=== PATIENT | female | born 1995 | race Caucasian/White ===

== ENCOUNTER → 2018-02-03 | Outpatient (CLI) | payer MEDICAID ==
--- NOTE | 2018-02-03 14:41 | Diagnostic Imaging Report ---
INDICATION: Assess growth. TECHNIQUE: Multiple real-time grayscale images were obtained over the gravid uterus. COMPARISON: None. FINDINGS: Mendez gestation is in cephalic position. The placenta is fundal with no abruption or previa. Amniotic fluid volume is normal, the index 10.1. Measurements correlate with an age 33 weeks 0 day with sonographic date of confinement 03/24/2018. Biometrical measurements are as follows: Biparietal 7.98 cm, age 32 weeks 1 days. Head circumference 29.5 cm, age 32 weeks 5 days. Abdominal circumference 30.77 cm, age 34 weeks 6 days. Femur length 6.19 cm, age 32 weeks 1 days. Sonographic estimate age: 33 weeks 0 days. Sonographic estimated date of delivery: 03/24/2108. Estimated Weight: 2212 gm (+/- 323 gm). LMP percentile: 23%. heart rate: 142 beats per minute. number: 1 of 1. IMPRESSION: Mendez IUP at 33 weeks 0 day, cephalic in positioning with no pathological finding identified. Dictated by: Dictated on workstation # [id number]
== END ==
LOC: RAD 12:55
PROVIDERS: ATTEND Family Medicine
DX: O36.5930 Maternal care for other known or suspected poor fetal growth, third trimester, not applicable or unspecified (principal); Z3A.33 33 weeks gestation of pregnancy
CPT/HCPCS: 76805

== ENCOUNTER 2018-03-09 20:16 | Inpatient (IN) | payer MEDICAID ==
[~2018-03-09] VITALS: Ht 157.5 cm; Wt 70.8 kg
[2018-03-09] MEDS ORDERED: D5 LR IV SOLUTION 1,000 ML IV SCH (20:27)
[2018-03-09] MEDS ORDERED: MISOPROSTOL 100 MCG (CYTOTEC) TAB PV PRN (20:30)
[2018-03-09] MEDS ORDERED: TERBUTALINE INJ 1 MG/ML (BRETHINE) AMP SC PRN (20:30)
[2018-03-09] MEDS ORDERED: PREN-8 PO (20:47)
[2018-03-09] MEDS ORDERED: LACTATED RINGERS 1,000 ML IV ONE (20:57)
[2018-03-09] MEDS ORDERED: D5 LR IV SOLUTION 1,000 ML IV ONE (20:57)
[2018-03-09 21:00] VITALS: BP 130/79
[2018-03-09] MEDS: LACTATED RINGERS 1,000 ML IV SCH (21:11)
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
--- OUTSIDE RECORDS SUMMARY | 2018-03-09 21:12 | XMS REPORT ---
Author Author HAM LOYOLA [facility] Address [address] [place] [address] Care Team Providers Care Computer Forwarding System Markup Clerk Name Role Phone HAM LOYOLA Unavailable PROBLEMS Type Condition ICD9-CM Code HKC82-GX Code Onset Dates Condition Status SNOMED Code Problem Mild intermittent asthma with acute exacerbation J45.21 Active 794883546 Problem Unplanned Z34.90 Active 92475229 Problem Supervision of with insufficient care in second trimester O09.32 Active 76908976 Problem Poor growth affecting management of mother in third trimester, single or unspecified fetus O36.5930 Active 128214221 Problem Mental disorder complicating in third trimester O99.343 Active 886602455 Problem Bipolar affective disorder, remission status unspecified F31.9 Active 06918990 Problem with mental disorders in second trimester O99.342 Active 498727763 Problem Supervision of with insufficient care, third trimester O09.33 Active 16841691 Problem Seasonal allergies J30.2 Active 210537547 ALLERGIES No Information ENCOUNTERS Encounter Location Date Diagnosis [facility] [address] [id number], [place] [phone] Feb, [facility] [address] [facility] [id number], [place] [address] Feb, Third trimester Z33.1 ; Xhpnf-ovq-crykk fetus, third trimester O36.5930 ; 38 weeks gestation of Z3A.38 and Glucosuria R81 [facility] [address] [id number], [place] [address] Feb, Poor growth affecting management of mother in third trimester, single or unspecified fetus O36.5930 ; screening for streptococcus B Z36.85 ; 37 weeks gestation of Z3A.37 ; Acute vaginitis N76.0 and Infection of other part of genital tract in , third trimester O23.593 [facility] [address] [facility] [id number], [place] [address] Feb, [facility] [address] [facility] [id number], [place] [address] Feb, [facility] [address] [facility] [id number], [place] [address] Jan, care in third trimester Z34.93 ; Poor growth affecting management of mother in third trimester, single or unspecified fetus O36.5930 ; 34 weeks gestation of Z3A.34 and [facility] immunization Z23 [facility] [address] [id number], [place] [id number] Jan, Supervision of with insufficient care, third trimester O09.33 and Mental disorder complicating in third trimester O99.343 [facility] [address]00565100[place], [place] [id number] Dec, [facility] [address] [id number], [place] [phone] Dec, [facility] [address] [facility] [id number] [place] [id number] Dec, [facility] [address] [id number], [place] [phone] Dec, [facility] [address] [facility] [address] [id number], [place] [address] Dec, Supervision of with insufficient care, third trimester O09.33 ; Mental disorder complicating in third trimester O99.343 ; with mental disorders in second trimester O99.342 ; Encounter for immunization Z23 and Small for gestational age fetus affecting management of mother in awan in third trimester O36.5930 [facility] [address] [id number], [place] [phone] Dec, [facility] [address] [id number], [place] [id number] Nov, Supervision of with insufficient care in second trimester O09.32 ; with mental disorders in second trimester O99.342 ; Bipolar affective disorder, remission status unspecified F31.9 and Unplanned Z34.90 [facility] [address] [id number], [place] [id number] Nov, [facility] [address] [facility] [id number], [place] [phone] Nov, [facility] [address] [id number], [place] [phone] Oct, Seasonal allergies J30.2 [facility] [address] [id number], [place] [id number] Sep, [facility]ALSE[facility] [address] [id number], [place] [id number] Sep, Supervision of with insufficient care in second trimester O09.32 ; with mental disorders in second trimester O99.342 and Bipolar affective disorder, remission status unspecified F31.9 [facility] [address] [id number], [place] [phone] Sep, [facility]ALSE[facility] [address] [id number], [place] [address] Sep, Supervision of with insufficient care in second trimester O09.32 ; with mental disorders in second trimester O99.342 ; Bipolar affective disorder, remission status unspecified F31.9 and Unplanned Z34.90 [facility]ITALOur Security TeamMaribeth [address] [id number], [place] [id number] Sep, [facility] [address] [id number], [place] [id number] Jul, test positive Z32.01 [facility]ITALSENovoPolymersSM[address] [id number], [place] [id number] Mar, Mild intermittent asthma with acute exacerbation J45.21 and Hives L50.9 [facility]ITALDartPointsTER [address] [id number], [place] [phone] Dec, Dysuria 788.1 ; UTI symptoms 788.99 and Hematuria 599.70 IMMUNIZATIONS No Known Immunizations SOCIAL HISTORY Never Assessed REASON FOR VISIT ob f/u 1 week, NEEDS REPEAT GBS, cervix check-awoods PLAN OF CARE Activity Details Follow Up 1 Week Reason: Pending Test CULTURE, GROUP B STREP WITH SUSCEPTIBILITY Future/Pending Procedure NON-STRESS TEST VITAL SIGNS Height 61.5 in 2018-03-05 Weight 158.1 lbs 2018-03-05 Temperature 98.2 degrees Fahrenheit 2018-03-05 Heart Rate 82 bpm 2018-03-05 Respiratory Rate 20 2018-03-05 BMI 29.389 kg/m2 2018-03-05 Blood pressure systolic 122 mmHg 2018-03-05 Blood pressure diastolic 72 mmHg 2018-03-05 MEDICATIONS Medication Instructions Dosage Frequency Start Date End Date Duration Status Vitamin 27-0.8 MG Orally Once a day 1 tablet 24h Active RESULTS Name Result Date Reference Range GLUCOSE FINGERSTICK (IN HOUSE) 2018-03-05 GLU FINGERSTICK 79 PC Lot # [id number] Exp date 07/18/18 UA OB DIP (IN HOUSE) 2018-03-05 Glucose trace Protein negative Ultrasound : OB F/U (IN-HOUSE) 2018-03-05 Ultrasound : BIOPHYSICAL PROFILE W/ (IN-HOUSE) 2018-03-05 PROCEDURES Procedure Date Ordered Result Body Site URINE-NO MICRO Mar 05, 2018 BIOPHYS PROFILE W/NST Mar 05, 2018 NON-STRESS TEST Mar 05, 2018 LAB NOT BILLED BY [facility] Mar 05, 2018 OB US, FOLLOW-UP, PER FETUS Mar 05, 2018 GLUCOSE BLOOD TEST Mar 05, 2018 INSTRUCTIONS MEDICATIONS ADMINISTERED No Known Medications [...]
--- OUTSIDE RECORDS SUMMARY | 2018-03-09 21:12 | XMS REPORT ---
Author Author NATY RODRIGUEZ Organization [facility] Address [address] [place] [address] Care Team Providers Care Silk Spooler Name Role Phone MELINANOLBERTOHERACLIO NATY Unavailable PROBLEMS Type Condition ICD9-CM Code IZB13-XM Code Onset Dates Condition Status SNOMED Code Problem Supervision of with insufficient care in second trimester O09.32 Active 41849476 Problem Mild intermittent asthma with acute exacerbation J45.21 Active 446618647 Problem Supervision of with insufficient care, third trimester O09.33 Active 16123141 Problem Mental disorder complicating in third trimester O99.343 Active 713402981 Problem with mental disorders in second trimester O99.342 Active 520818911 Problem Unplanned Z34.90 Active 58879558 Problem Seasonal allergies J30.2 Active 511842580 Problem Bipolar affective disorder, remission status unspecified F31.9 Active 63300344 ALLERGIES Substance Reaction Event Type Date Status Penicillin V Potassium hives Drug Allergy Nov, Active Depakote rash Drug Allergy Nov, Active ENCOUNTERS Encounter Location Date Diagnosis [facility] [address] [id number], [place] [id number] Jan, Supervision of with insufficient care, third trimester O09.33 and Mental disorder complicating in third trimester O99.343 [facility] [address] [facility] [id number], [place] [id number] Dec, [facility] [address] [id number], [place] [address] Dec, [facility] [address] [id number], [place] [id number] Dec, [facility] [address] [facility] [id number], [place] [address] Dec, [facility] [address] [id number], [place] [id number] Dec, Supervision of with insufficient care, third trimester O09.33 ; Mental disorder complicating in third trimester O99.343 ; with mental disorders in second trimester O99.342 ; Encounter for immunization Z23 and Small for gestational age fetus affecting management of mother in awan in third trimester O36.5930 [facility] [address] [id number], [place] [address] Dec, [facility] [address] [id number], [place] [id number] Nov, Supervision of with insufficient care in second trimester O09.32 ; with mental disorders in second trimester O99.342 ; Bipolar affective disorder, remission status unspecified F31.9 and Unplanned Z34.90 [facility] [address] [id number], [place] [id number] Nov, [facility] ALYSON [address] [place] [id number], [place] [id number] Nov, [facility] [address] [id number], [place] [address] Oct, Seasonal allergies J30.2 [facility] [address] [id number], [place] [address] Sep, [facility] [address] [id number], [place] [address] Sep, Supervision of with insufficient care in second trimester O09.32 ; with mental disorders in second trimester O99.342 and Bipolar affective disorder, remission status unspecified F31.9 [facility] [address] [facility] [id number], [place] [id number] Sep, [facility] [address] [id number], [place] [address] Sep, Supervision of with insufficient care in second trimester O09.32 ; with mental disorders in second trimester O99.342 ; Bipolar affective disorder, remission status unspecified F31.9 and Unplanned Z34.[address] [facility] [address] [id number] [place] [address] Sep, [address] [id number], [place] [id number] Jul, test positive Z32.[address] [id number] [place] [address] Mar, Mild intermittent asthma with acute exacerbation J45.21 and Hives L50.[address] [id number] [place] [address] Dec, Dysuria 788.1 ; UTI symptoms 788.99 and Hematuria 599.70 IMMUNIZATIONS No Known Immunizations SOCIAL HISTORY Never Assessed REASON FOR VISIT OB f/u-feels like baby has dropped Lauri green PLAN OF CARE Activity Details Follow Up 2 Weeks Reason: VITAL SIGNS Weight 138.2 lbs 2017-12-09 Blood pressure systolic 120 mmHg 2017-12-09 Blood pressure diastolic 60 mmHg 2017-12-09 MEDICATIONS Medication Instructions Dosage Frequency Start Date End Date Duration Status Acetaminophen 500 mg Orally every 6 hrs 1-2 tablet as needed 6h Sep, Jan, 30 days Active Cetirizine HCl 10 mg Orally Once a day 1 tablet 24h Oct, Mar, 30 day(s) Active Cetirizine HCl 10 mg Orally Once a day 1 tablet 24h Mar, Unknown ProAir HFA 108 (90 Base) MCG/ACT Inhalation every 6 hrs 2 puffs as needed 6h Mar, Active Vitamin 27-0.8 MG Orally Once a day 1 tablet 24h Active RESULTS No Results PROCEDURES Procedure Date Ordered Result Body Site URINE-NO MICRO Dec 09, 2017 URINALYSIS, AUTO, W/O SCOPE Dec 09, 2017 VENIPUNCT, ROUTINE* Dec 09, 2017 LAB NOT BILLED BY [facility] Dec 09, 2017 INSTRUCTIONS MEDICATIONS ADMINISTERED No Known Medications MEDICAL [...]
--- OUTSIDE RECORDS SUMMARY | 2018-03-09 21:12 | XMS REPORT ---
Author Author NATY Mireles Organization [facility] Address [address] [place] [address] Care Team Providers Care Poultry Offal Icer Name Role Phone Aline NATY Unavailable PROBLEMS Type Condition ICD9-CM Code BTG65-QH Code Onset Dates Condition Status SNOMED Code Problem Mild intermittent asthma with acute exacerbation J45.21 Active 788707532 Problem Unplanned Z34.90 Active 70781812 Problem Supervision of with insufficient care in second trimester O09.32 Active 66698405 Problem Poor growth affecting management of mother in third trimester, single or unspecified fetus O36.5930 Active 609013790 Problem Mental disorder complicating in third trimester O99.343 Active 246190680 Problem Bipolar affective disorder, remission status unspecified F31.9 Active 51720282 Problem with mental disorders in second trimester O99.342 Active 941545912 Problem Supervision of with insufficient care, third trimester O09.33 Active 63672671 Problem Seasonal allergies J30.2 Active 504535373 ALLERGIES No Information ENCOUNTERS Encounter Location Date Diagnosis [facility] [address] [facility] [id number], [place] [address] Feb, [facility] [address] [facility] [id number], [place] [address] Jan, care in third trimester Z34.93 ; Poor growth affecting management of mother in third trimester, single or unspecified fetus O36.5930 ; 34 weeks gestation of Z3A.34 and Encounter for immunization Z23 [facility] [address] [id number] [place] [id number] Jan, Supervision of with insufficient care, third trimester O09.33 and Mental disorder complicating in third trimester O99.343 [facility] [address] [facility] [id number] [place] [phone] Dec, [facility] [address] [id number], [place] [id number] Dec, [facility] [address] [id number], [place] [address] Dec, [facility] MOREIRABUS [address] [facility] [id number] [place]EST[place] [phone] Dec, [facility] [address] [id number], [place] [address] Dec, Supervision of with insufficient care, third trimester O09.33 ; Mental disorder complicating in third trimester O99.343 ; with mental disorders in second trimester O99.342 ; Encounter for immunization Z23 and Small for gestational age fetus affecting management of mother in awan in third trimester O36.5930 [facility] [address] [id number], [place] [address] Dec, [facility] [address] [id number], [place] [address]96[address] Nov, Supervision of with insufficient care in second trimester O09.32 ; with mental disorders in second trimester O99.342 ; Bipolar affective disorder, remission status unspecified F31.9 and Unplanned Z34.90 [facility] [address] [id number], [place] [id number] Nov, [facility] SHIELDS [address] [facility] [id number] [place] [address] Nov, [facility] [address] [id number], [place] [address] Oct, Seasonal allergies J30.2 [facility] [address] [id number], [place] [address] Sep, [facility] [address] [id number], [place] [address]94[address] Sep, Supervision of with insufficient care in second trimester O09.32 ; with mental disorders in second trimester O99.342 and Bipolar affective disorder, remission status unspecified F31.9 [facility] ALYSON [address] [id number] [place] [id number] Sep, [facility] [address] [facility] [facility] [address] [id number], [place] [address] Sep, Supervision of with insufficient care in second trimester O09.32 ; with mental disorders in second trimester O99.342 ; Bipolar affective disorder, remission status unspecified F31.9 and Unplanned Z34.90 [facility] SM[address] [place] [address] AVE [id number], [place] [address] Sep, [facility] Mt[address] [place] [address] AVE [id number], [place] [address]39 Jul, test positive Z32.01 [facility]onym[facility]ITH[address] [id number], [place] [address] Mar, Mild intermittent asthma with acute exacerbation J45.21 and Hives L50.9 [facility] [address] [id number], [place] [address] Dec, Dysuria 788.1 ; UTI symptoms 788.99 and Hematuria 599.70 IMMUNIZATIONS No Known Immunizations SOCIAL HISTORY Never Assessed REASON FOR VISIT Requests return call PLAN OF CARE VITAL SIGNS MEDICATIONS Unknown [...]
--- OUTSIDE RECORDS SUMMARY | 2018-03-09 21:12 | XMS REPORT ---
Author Author ANN MONTAGUE Organization [facility] Address [address] [place] [address] Care Team Providers Care Specialty Development Consultant Name Role Phone ANN MONTAGUE Unavailable PROBLEMS Type Condition ICD9-CM Code IHX49-WC Code Onset Dates Condition Status SNOMED Code Problem Mild intermittent asthma with acute exacerbation J45.21 Active 433422734 Problem Unplanned Z34.90 Active 57879554 Problem Supervision of with insufficient care in second trimester O09.32 Active 28810027 Problem Poor growth affecting management of mother in third trimester, single or unspecified fetus O36.5930 Active 104201046 Problem Mental disorder complicating in third trimester O99.343 Active 562090849 Problem Bipolar affective disorder, remission status unspecified F31.9 Active 34089436 Problem with mental disorders in second trimester O99.342 Active 731906298 Problem Supervision of with insufficient care, third trimester O09.33 Active 21649589 Problem Seasonal allergies J30.2 Active 950169365 ALLERGIES No Information ENCOUNTERS Encounter Location Date Diagnosis [facility] [address] [facility] [id number], [place] [address] Feb, [facility] [address] [facility] [id number], [place] [address] Jan, care in third trimester Z34.93 ; Poor growth affecting management of mother in third trimester, single or unspecified fetus O36.5930 ; 34 weeks gestation of Z3A.34 and Encounter for immunization Z23 [facility] [address] [id number] [place] [address] Jan, Supervision of with insufficient care, third trimester O09.33 and Mental disorder complicating in third trimester O99.343 [facility] [address] [facility] [id number], [place] [address] Dec, [facility] [address] [id number] [place] 9[address]4460[address] Dec, [facility] [address] [id number] [place], [place] 561146376 Dec, [facility] MROEIRABUS [address] [facility] [id number], [place] [address] Dec, [facility] [address] [id number] [place] [address] Dec, Supervision of with insufficient care, third trimester O09.33 ; Mental disorder complicating in third trimester O99.343 ; with mental disorders in second trimester O99.342 ; Encounter for immunization Z23 and Small for gestational age fetus affecting management of mother in awan in third trimester O36.5930 [facility]FireworkMaribeth [address] [id number] [place], [place] [address] Dec, [facility]work[facility] [address] [id number] [place] 2226036[address] Nov, Supervision of with insufficient care in second trimester O09.32 ; with mental disorders in second trimester O99.342 ; Bipolar affective disorder, remission status unspecified F31.9 and Unplanned Z34.90 [facility] [address] [id number] [place] 2549559[address] Nov, [facility]STERFireworkMaribeth MOREIRAALYSON [address] [facility] [id number], [place] [id number] Nov, [facility]workMar[facility] [address] [id number] [place] [address] Oct, Seasonal allergies J30.2 [facility]STERBitSight TechnologiesTER [address] [id number] [place], [place] [address] Sep, [facility] [address] [id number] [place] [address] Sep, Supervision of with insufficient care in second trimester O09.32 ; with mental disorders in second trimester O99.342 and Bipolar affective disorder, remission status unspecified F31.9 [facility] [address] [facility] [id number] [place] [id number] Sep, [facility] [address] [facility] [address] [id number] [place] [address] Sep, Supervision of with insufficient care in second trimester O09.32 ; with mental disorders in second trimester O99.342 ; Bipolar affective disorder, remission status unspecified F31.9 and Unplanned Z34.90 [facility] [address] [place] [address] AVE [id number] [place] [address] Sep, [facility] [address] [id number] [place] [address] Jul, test positive Z32.[address] [id number] [place]ILL[place] [address] Mar, Mild intermittent asthma with acute exacerbation J45.21 and Hives L50.[address] [id number] [place]ILL[place], [place] [address]75[address] Dec, Dysuria 788.1 ; UTI symptoms 788.99 [...]
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
--- OUTSIDE RECORDS SUMMARY | 2018-03-09 21:13 | XMS REPORT ---
Author Author NATY RODRIGUEZ [facility] Address [address] [place] [address] Care Team Providers Care University Professor Name Role Phone NATY RODRIGUEZ Unavailable PROBLEMS ALLERGIES ENCOUNTERS IMMUNIZATIONS SOCIAL HISTORY No smoking Hx information available REASON FOR VISIT PLAN OF CARE VITAL SIGNS MEDICATIONS RESULTS PROCEDURES INSTRUCTIONS MEDICATIONS ADMINISTERED No Known Medications MEDICAL (GENERAL) HISTORY
--- OUTSIDE RECORDS SUMMARY | 2018-03-09 21:13 | XMS REPORT ---
Author Author NATY RODRIGUEZ Organization [facility] Address [address] [place] [address] Care Team Providers Care Research Test Engine Operator Name Role Phone MELINANOLBERTOHERACLIO NATY Unavailable PROBLEMS Type Condition ICD9-CM Code UNL31-DZ Code Onset Dates Condition Status SNOMED Code Problem Supervision of with insufficient care in second trimester O09.32 Active 50256140 Problem Mild intermittent asthma with acute exacerbation J45.21 Active 740650637 Problem Supervision of with insufficient care, third trimester O09.33 Active 09231986 Problem Mental disorder complicating in third trimester O99.343 Active 457880211 Problem with mental disorders in second trimester O99.342 Active 972422427 Problem Unplanned Z34.90 Active 43952683 Problem Seasonal allergies J30.2 Active 226103824 Problem Bipolar affective disorder, remission status unspecified F31.9 Active 98053007 ALLERGIES No Information ENCOUNTERS Encounter Location Date Diagnosis [facility] [address] [facility] [id number], [place] [id number] Dec, [facility] [address] [id number] [place] [id number] Dec, [facility] [address] [id number] [place] [address] Dec, Supervision of with insufficient care, third trimester O09.33 ; Mental disorder complicating in third trimester O99.343 ; with mental disorders in second trimester O99.342 ; Encounter for immunization Z23 and Small for gestational age fetus affecting management of mother in awan in third trimester O36.5930 [facility] [address] [id number] [place]KE[place] [address] Dec, [place] [place] [id number] [place] [address] Nov, Supervision of with insufficient care in second trimester O09.32 ; with mental disorders in second trimester O99.342 ; Bipolar affective disorder, remission status unspecified F31.9 and Unplanned Z34.[address] [facility] [address] [id number] [place] [address] Nov, [facility] [address] [facility] [id number], [place] [id number] Nov, [facility] [address] [id number] [place]KE[place] [id number] Oct, Seasonal allergies J30.[address] [facility] [address] [id number] [place] [id number] Sep, [facility] [address] [id number] [place] [address] Sep, Supervision of with insufficient care in second trimester O09.32 ; with mental disorders in second trimester O99.342 and Bipolar affective disorder, remission status unspecified F31.[address] [facility] [address] [id number], [place] [address] Sep, [facility] [address] [id number] [place]KE[place] [address] Sep, Supervision of with insufficient care in second trimester O09.32 ; with mental disorders in second trimester O99.342 ; Bipolar affective disorder, remission status unspecified F31.9 and Unplanned Z34.[address] [facility] [address] [id number] [place]KE[place] [address] Sep, [facility] [address] [id number] [place] [address] Jul, test positive Z32.[address] [facility] [address] [id number] [place]KE[place] [address] Mar, Mild intermittent asthma with acute exacerbation J45.21 and Hives L50.[address] [facility] [address] [id number] [place] [address] Dec, Dysuria 788.1 ; UTI symptoms 788.99 [...] History surgeries from [facility] 08/2016 Hospitalization History [facility] Had small blood spots and was afraid of miscarriage. Had an OB check and was cleared and sent home 09/29/2017
--- OUTSIDE RECORDS SUMMARY | 2018-03-09 21:13 | XMS REPORT ---
Author Author NATY RODRIGUEZ Organization [facility] Address [address] [place] [address] Care Team Providers Care Tourist Information Assistant Name Role Phone MELINANOLBERTOHERACLIO NATY Unavailable PROBLEMS Type Condition ICD9-CM Code SCL11-QA Code Onset Dates Condition Status SNOMED Code Problem Seasonal allergies J30.2 Active 556462525 Problem Bipolar affective disorder, remission status unspecified F31.9 Active 67900379 Problem Unplanned Z34.90 Active 47181444 Problem Mild intermittent asthma with acute exacerbation J45.21 Active 960250068 Problem with mental disorders in second trimester O99.342 Active 715273120 Problem Supervision of with insufficient care in second trimester O09.32 Active 27259021 ALLERGIES No Information ENCOUNTERS Encounter Location Date Diagnosis [address] [id number], [place] [id number] Dec, [address] [id number], [place] [address] Nov, Supervision of with insufficient care in second trimester O09.32 ; with mental disorders in second trimester O99.342 ; Bipolar affective disorder, remission status unspecified F31.9 and Unplanned Z34.[address] [id number] [place] [address] Nov, [employer] [address] [facility] [id number] [place] [id number] Nov, [address] [id number] [place] [address] Oct, Seasonal allergies J30.2 [facility] [address] [id number] [place] [address] Sep, [facility] [address] [id number], [place] [id number] Sep, Supervision of with insufficient care in second trimester O09.32 ; with mental disorders in second trimester O99.342 and Bipolar affective disorder, remission status unspecified F31.9 [facility] [address] [facility] [id number] [place] [id number] 13 Sep, 2017 [facility] [address] [place] [address] [id number], [place] [id number] Sep, Supervision of with insufficient care in second trimester O09.32 ; with mental disorders in second trimester O99.342 ; Bipolar affective disorder, remission status unspecified F31.9 and Unplanned Z34.90 [facility] [address] [id number], [place] [address] Sep, [facility] [address] [id number], [place] [address] Jul, test positive Z32.01 [facility] [address] [id number], [place] [address] Mar, Mild intermittent asthma with acute exacerbation J45.21 and Hives L50.[address] [id number], [place] [address] Dec, Dysuria 788.1 ; UTI symptoms 788.99 and Hematuria 599.70 IMMUNIZATIONS No Known Immunizations SOCIAL HISTORY Never Assessed REASON FOR VISIT checking on pt PLAN OF CARE VITAL SIGNS MEDICATIONS Unknown [...]
--- OUTSIDE RECORDS SUMMARY | 2018-03-09 21:13 | XMS REPORT ---
Author Author NATY RODRIGUEZ [facility] Address [address] [place] [address] Care Team Providers Care Alley Tender Name Role Phone NATY RODRIGUEZ Unavailable PROBLEMS ALLERGIES No Information ENCOUNTERS IMMUNIZATIONS No Known Immunizations SOCIAL HISTORY No smoking Hx information available REASON FOR VISIT PLAN OF CARE VITAL SIGNS MEDICATIONS Unknown Medications RESULTS No Results PROCEDURES No Known procedures INSTRUCTIONS MEDICATIONS ADMINISTERED No Known Medications MEDICAL (GENERAL) HISTORY
--- OUTSIDE RECORDS SUMMARY | 2018-03-09 21:13 | XMS REPORT ---
Author Author NATY RODRIGUEZ Organization [facility] Address [address] [place] [address] Care Team Providers Care Medical Field Representative Name Role Phone MELINANOLBERTOHERACLIO NATY Unavailable PROBLEMS Type Condition ICD9-CM Code EZZ39-AL Code Onset Dates Condition Status SNOMED Code Problem Supervision of with insufficient care in second trimester O09.32 Active 09281575 Problem Mild intermittent asthma with acute exacerbation J45.21 Active 999003532 Problem Supervision of with insufficient care, third trimester O09.33 Active 23071347 Problem Mental disorder complicating in third trimester O99.343 Active 332875114 Problem with mental disorders in second trimester O99.342 Active 071087172 Problem Unplanned Z34.90 Active 69825607 Problem Seasonal allergies J30.2 Active 076176244 Problem Bipolar affective disorder, remission status unspecified F31.9 Active 59029387 ALLERGIES No Information ENCOUNTERS Encounter Location Date Diagnosis [address] [id number], [place] [id number] Jan, [employer] [address] [facility] [id number] [place] [id number] Dec, [facility] [address] [id number], [place] [address] Dec, [facility] [address] [id number], [place] [id number] Dec, [facility] [id number] [place] [id number] Dec, [facility] [address] [id number], [place] [address] Dec, Supervision of with insufficient care, third trimester O09.33 ; Mental disorder complicating in third trimester O99.343 ; with mental disorders in second trimester O99.342 ; Encounter for immunization Z23 and Small for gestational age fetus affecting management of mother in awan in third trimester O36.[address] [facility] [address] [id number], [place] [address] Dec, [facility] [address] [id number], [place] [address] Nov, Supervision of with insufficient care in second trimester O09.32 ; with mental disorders in second trimester O99.342 ; Bipolar affective disorder, remission status unspecified F31.9 and Unplanned Z34.90 [facility] [address] [id number], [place] [id number] Nov, [facility] [address] [facility] [id number] [place]ALLS[place] [address] Nov, [facility] [address] [id number], [place] [address] Oct, Seasonal allergies J30.[address] [facility] [address] [id number], [place] [address] Sep, [facility] [address] [id number], [place] [address] Sep, Supervision of with insufficient care in second trimester O09.32 ; with mental disorders in second trimester O99.342 and Bipolar affective disorder, remission status unspecified F31.9 [facility]00565100[place] [address] Sep, [facility] [address] [id number], [place] [address] Sep, Supervision of with insufficient care in second trimester O09.32 ; with mental disorders in second trimester O99.342 ; Bipolar affective disorder, remission status unspecified F31.9 and Unplanned Z34.[address] [address] [id number], [place] [address] Sep, [facility] [address] [id number], [place] [address] Jul, test positive Z32.01 [facility] [address] [facility] [address] [id number] [place] [address] Mar, Mild intermittent asthma with acute exacerbation J45.21 and Hives L50.9 [facility] [address] [facility] [address] [id number] [place] [address] Dec, Dysuria 788.1 ; UTI symptoms 788.99 [...] History mental health Hospitalization History surgeries from [facility] 08/2016 Hospitalization History [facility] Had small blood spots and was afraid of miscarriage. Had an OB check and was cleared and sent home 09/29/2017
--- OUTSIDE RECORDS SUMMARY | 2018-03-09 21:13 | XMS REPORT ---
Author Author NATY RODRIGUEZ Organization [facility] Address [address] [place] [address] Care Team Providers Care Tester Armature Or Fields Name Role Phone MELINANOLBERTOHERACLIO NATY Unavailable PROBLEMS Type Condition ICD9-CM Code WWB51-OP Code Onset Dates Condition Status SNOMED Code Problem Supervision of with insufficient care in second trimester O09.32 Active 65225456 Problem Mild intermittent asthma with acute exacerbation J45.21 Active 295773630 Problem Supervision of with insufficient care, third trimester O09.33 Active 10322892 Problem Mental disorder complicating in third trimester O99.343 Active 525317598 Problem with mental disorders in second trimester O99.342 Active 402514632 Problem Unplanned Z34.90 Active 61029500 Problem Seasonal allergies J30.2 Active 939401930 Problem Bipolar affective disorder, remission status unspecified F31.9 Active 22969235 ALLERGIES No Information ENCOUNTERS Encounter Location Date Diagnosis [address] [id number], [place] [id number] Jan, [employer] [address] [facility] [id number], [place] [phone] Dec, [facility] [address] [id number], [place] [address] Dec, [facility] [address] [id number], [place] [address] Dec, [facility]th[facility] [id number] [place] [address] Dec, [facility] [address] [id number], [place] [address] Dec, Supervision of with insufficient care, third trimester O09.33 ; Mental disorder complicating in third trimester O99.343 ; with mental disorders in second trimester O99.342 ; Encounter for immunization Z23 and Small for gestational age fetus affecting management of mother in awan in third trimester O36.[address] [facility] [address] [id number], [place] [address] Dec, [facility] [address] [id number], [place] [address] Nov, Supervision of with insufficient care in second trimester O09.32 ; with mental disorders in second trimester O99.342 ; Bipolar affective disorder, remission status unspecified F31.9 and Unplanned Z34.90 [facility] [address] [id number], [place] [address] Nov, [facility] [address] [facility] [id number], [place] [id number] Nov, [facility] [address] [id number], [place] [address] Oct, Seasonal allergies J30.[address] [facility] [address] [id number], [place] [address] Sep, [facility] [address] [id number], [place] [address] Sep, Supervision of with insufficient care in second trimester O09.32 ; with mental disorders in second trimester O99.342 and Bipolar affective disorder, remission status unspecified F31.9 [facility]00565100[place], [place] [address] Sep, [facility] [address] [id number], [place] [address] Sep, Supervision of with insufficient care in second trimester O09.32 ; with mental disorders in second trimester O99.342 ; Bipolar affective disorder, remission status unspecified F31.9 and Unplanned Z34.[address] [address] [id number], [place] 396[address] Sep, [facility] [address] [id number], [place] [address] Jul, test positive Z32.01 [facility] [address] [facility] [address] [id number] [place] [address] Mar, Mild intermittent asthma with acute exacerbation J45.21 and Hives L50.9 [facility] [address] [facility] [address] [id number] [place] [address] Dec, Dysuria 788.1 ; UTI symptoms 788.99 [...] History mental health Hospitalization History surgeries from [facility] 08/[address] [facility] Had small blood spots and was afraid of miscarriage. Had an OB check and was cleared and sent home 09/29/2017
--- OUTSIDE RECORDS SUMMARY | 2018-03-09 21:13 | XMS REPORT ---
Author Author NATY RODRIGUEZ Organization [facility] Address [address] [place] [address] Care Team Providers Care Nuclear Medicine Medical Director Name Role Phone MELINANOLBERTOEHRACLIO NATY Unavailable PROBLEMS Type Condition ICD9-CM Code VDE51-YO Code Onset Dates Condition Status SNOMED Code Problem Supervision of with insufficient care in second trimester O09.32 Active 04150125 Problem Mild intermittent asthma with acute exacerbation J45.21 Active 963817447 Problem Supervision of with insufficient care, third trimester O09.33 Active 80684847 Problem Mental disorder complicating in third trimester O99.343 Active 569493205 Problem with mental disorders in second trimester O99.342 Active 369610918 Problem Unplanned Z34.90 Active 95698353 Problem Seasonal allergies J30.2 Active 034919483 Problem Bipolar affective disorder, remission status unspecified F31.9 Active 63831230 ALLERGIES No Information ENCOUNTERS Encounter Location Date Diagnosis [address] [id number] HILLS, [place] [id number] Jan, [employer] [address] [facility] [id number], [place] [id number] Dec, [facility] Technologies[facility] [address] [id number] HILLS, [place] [id number] Dec, [facility]ITALElite[facility] TechnologiesTER [address] [id number] HILLS, [place] 938800[address] Dec, [facility]OSPITALSan Diego [employer] [id number] [place] [id number] Dec, [facility]ITAL[facility]ite[facility] TechnologiesTER [address] [id number] HILLS, [place] [address]368[address] Dec, Supervision of with insufficient care, third trimester O09.33 ; Mental disorder complicating in third trimester O99.343 ; with mental disorders in second trimester O99.342 ; Encounter for immunization Z23 and Small for gestational age fetus affecting management of mother in awan in third trimester O36.[address] [facility] [address] [id number] HILLS[place] [id number] Dec, [facility] [address] [id number] HILLS, [place] 405[address] Nov, Supervision of with insufficient care in second trimester O09.32 ; with mental disorders in second trimester O99.342 ; Bipolar affective disorder, remission status unspecified F31.9 and Unplanned Z34.90 [facility] [address] [id number] HILLS[place] [id number] Nov, [facility] [address] [facility] [id number], [place] [id number] Nov, [facility] [address] [id number] HILLS[place] [id number] Oct, Seasonal allergies J30.[address] [address] [id number] HILLS[place] [id number] Sep, [facility] [address] [id number] HILLS, [place] 288146167 Sep, Supervision of with insufficient care in second trimester O09.32 ; with mental disorders in second trimester O99.342 and Bipolar affective disorder, remission status unspecified F31.9 [facility]00565100[place], [place] [address] Sep, [facility] [address] [id number] HILLS[place] [address]108[address] Sep, Supervision of with insufficient care in second trimester O09.32 ; with mental disorders in second trimester O99.342 ; Bipolar affective disorder, remission status unspecified F31.9 and Unplanned Z34.[address] [address] [id number] HILLS[place] [id number] Sep, [facility] [address] [id number] HILLS, [place] [address] Jul, test positive Z32.01 [facility] [address] [facility] [address] [id number] [place] [address] Mar, Mild intermittent asthma with acute exacerbation J45.21 and Hives L50.9 [facility] [facility] [address] [id number] [place] [id number] Dec, Dysuria 788.1 ; UTI symptoms 788.99 [...] History mental health Hospitalization History surgeries from [facility] 08/2016 Hospitalization History [facility] Had small blood spots and was afraid of miscarriage. Had an OB check and was cleared and sent home 09/29/2017
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
--- OUTSIDE RECORDS SUMMARY | 2018-03-09 21:14 | XMS REPORT ---
Author Author VALARIE ULLOA Organization [employer] Address Unknown Phone Unavailable Care Team Providers Care Tier And Detonator Name Role Phone VALARIE ULLOA CP Unavailable Allergies, Adverse Reactions, Alerts Substance Reaction Event Type Penicillin V Potassium hives Drug Allergy Depakote rash Drug Allergy Problems Problem Type Condition ICD-9 Code Onset Dates Condition Status Assessment UTI symptoms 788.99 Active Assessment Hematuria 599.70 Active Assessment Dysuria 788.1 Active Medications Medication Code System Code Instructions Start Date End Date Status Dosage Pyridium [facility] [address]-82 200 MG Orally Three times a day Dec 29, 2014 Jan 01, 2015 1 tablet after meals Cipro [facility] [address]-85 500 MG Orally Twice a day Dec 29, 2014 Jan 08, 2015 1 tablet Procedures Procedure Coding System Code Date URINE CULTURE/COLONY COUNT CPT-4 62065 Dec 29, 2014 Office Visit, New Pt., Level 3 CPT-4 29793 Dec 29, 2014 URINALYSIS, AUTO, W/O SCOPE CPT-4 72074 Dec 29, 2014 Vital Signs Date/Time: Dec 29, 2014 Temperature 98.5 F Weight 128.5 lbs Height 61.5 in BMI 23.88 Index Blood Pressure Diastolic 60 mmHg Blood Pressure Systolic 100 mmHg Cardiac Monitoring Heart Rate 82 bpm Results No Known Results Summary Purpose [employer] Submission
--- OUTSIDE RECORDS SUMMARY | 2018-03-09 21:14 | XMS REPORT ---
Author Author NATY RODRIGUEZ Organization [facility] Address [address] [place] [address] Care Team Providers Care Operations Section Manager Name Role Phone MELINANOLBERTOHERACLIO NATY Unavailable PROBLEMS Type Condition ICD9-CM Code MVM99-MN Code Onset Dates Condition Status SNOMED Code Problem Seasonal allergies J30.2 Active 472151827 Problem Bipolar affective disorder, remission status unspecified F31.9 Active 85529725 Problem Unplanned Z34.90 Active 64228936 Problem Mild intermittent asthma with acute exacerbation J45.21 Active 925497694 Problem with mental disorders in second trimester O99.342 Active 178374224 Problem Supervision of with insufficient care in second trimester O09.32 Active 40522349 ALLERGIES No Information ENCOUNTERS Encounter Location Date Diagnosis [employer] [address] [id number], [place] [id number] Dec, [address] [id number], [place] [phone] Nov, [facility] [address] [id number], [place] [phone] Nov, [facility]ENovImmuneBUS [address] [facility] [id number]'NEALS, [place] [id number] Nov, [facility]iagn[facility].[address] [address] [id number], [place] [id number] Oct, Seasonal allergies J30.2 [facility] [id number], [place] [id number] Sep, [facility] [address] [id number], [place] [id number] Sep, Supervision of with insufficient care in second trimester O09.32 ; with mental disorders in second trimester O99.342 and Bipolar affective disorder, remission status unspecified F31.9 [facility] ALYSON [address] [id number] [place] [phone] Sep, [facility] GRANGEnuevoStageMaribeth ANSARISMITH [address] [facility] [address] [id number], [place] [id number] Sep, Supervision of with insufficient care in second trimester O09.32 ; with mental disorders in second trimester O99.342 ; Bipolar affective disorder, remission status unspecified F31.9 and Unplanned Z34.90 [facility] WESTArgyle Social SMITH [address] [place] [address] AVE [id number], [place] [id number] Sep, [facility] GR[facility]EDiagnose.meTER Mt[address] [place] [address] AVE [id number], [place] [id number] Jul, test positive Z32.01 [facility] GRANGEDiagnose.meTER [employer] [place] [address] AV [id number], [place] [id number] Mar, Mild intermittent asthma with acute exacerbation J45.21 and Hives L50.9 [facility] SMITH[address] AV [id number], [place] [id number] Dec, Dysuria 788.1 ; UTI symptoms 788.99 [...]
--- OUTSIDE RECORDS SUMMARY | 2018-03-09 21:14 | XMS REPORT ---
Author Author NATY RODRIGUEZ Organization [facility] Address [address] [place] [address] Care Team Providers Care Railcar Carpenter Name Role Phone MELINANOLBERTOHERACLIO NATY Unavailable PROBLEMS Type Condition ICD9-CM Code UHJ03-RC Code Onset Dates Condition Status SNOMED Code Problem Seasonal allergies J30.2 Active 317648190 Problem Bipolar affective disorder, remission status unspecified F31.9 Active 02314119 Problem Unplanned Z34.90 Active 06389840 Problem Mild intermittent asthma with acute exacerbation J45.21 Active 386014823 Problem with mental disorders in second trimester O99.342 Active 349733698 Problem Supervision of with insufficient care in second trimester O09.32 Active 41525442 ALLERGIES No Information ENCOUNTERS Encounter Location Date Diagnosis [employer] [address] [id number] [place], [place] [phone] Dec, [address] [id number], [place] [id number] Nov, Supervision of with insufficient care in second trimester O09.32 ; with mental disorders in second trimester O99.342 ; Bipolar affective disorder, remission status unspecified F31.9 and Unplanned Z34.[address] [id number] [place] [id number] Nov, [employer] [address] [facility] [id number], [place] [id number] Nov, IP CommerceTER [address] [id number] [place] [phone] Oct, Seasonal allergies J30.2 [facility] [address] [id number] [place] [phone] Sep, [facility] [address] [id number] [place] [phone] Sep, Supervision of with insufficient care in second trimester O09.32 ; with mental disorders in second trimester O99.342 and Bipolar affective disorder, remission status unspecified F31.9 [facility] [address] [facility] [id number] [place] [id number] 13 Sep, [address] [facility] [address] [place] [address] [id number], [place] [id number] Sep, Supervision of with insufficient care in second trimester O09.32 ; with mental disorders in second trimester O99.342 ; Bipolar affective disorder, remission status unspecified F31.9 and Unplanned Z34.90 [facility] SMITH[address] [id number], [place] [id number] Sep, [facility] SMITH[address] [id number], [place] [address] Jul, test positive Z32.01 [facility] SMITH[address] [id number], [place] [address] Mar, Mild intermittent asthma with acute exacerbation J45.21 and Hives L50.[address] [id number], [place] [phone] Dec, Dysuria 788.1 ; UTI symptoms 788.99 and Hematuria 599.70 IMMUNIZATIONS No Known Immunizations SOCIAL HISTORY Never Assessed REASON FOR VISIT Requests return call/ OB pt PLAN OF CARE VITAL SIGNS MEDICATIONS [...]
--- OUTSIDE RECORDS SUMMARY | 2018-03-09 21:14 | XMS REPORT ---
Author Author NATY RODRIGUEZ Organization [facility] Address [address] [place] [address] Care Team Providers Care Dispatch Machine Runner Name Role Phone MELINANOLBERTOHERACLIO NATY Unavailable PROBLEMS Type Condition ICD9-CM Code JRJ20-NU Code Onset Dates Condition Status SNOMED Code Problem Seasonal allergies J30.2 Active 838681969 Problem Bipolar affective disorder, remission status unspecified F31.9 Active 69644359 Problem Unplanned Z34.90 Active 47480929 Problem Mild intermittent asthma with acute exacerbation J45.21 Active 363723902 Problem with mental disorders in second trimester O99.342 Active 576111539 Problem Supervision of with insufficient care in second trimester O09.32 Active 74163194 ALLERGIES No Information ENCOUNTERS Encounter Location Date Diagnosis [employer] [address] [id number] [place], [place] [id number] Dec, [address] [id number], [place] [id number] Nov, Supervision of with insufficient care in second trimester O09.32 ; with mental disorders in second trimester O99.342 ; Bipolar affective disorder, remission status unspecified F31.9 and Unplanned Z34.[address] [id number] [place] [id number] Nov, [employer] [address] [facility] [id number], [place] [address] Nov, [address] [id number] [place] [address] Oct, Seasonal allergies J30.2 [facility] [address] [id number] [place], [place] [id number] Sep, [facility] [address] [id number] [place] [id number] Sep, Supervision of with insufficient care in second trimester O09.32 ; with mental disorders in second trimester O99.342 and Bipolar affective disorder, remission status unspecified F31.9 [facility] [address] [facility] [id number] [place] [id number] 13 Sep, 2017 [facility] [address] [place] [address] [id number], [place] [address] Sep, Supervision of with insufficient care in second trimester O09.32 ; with mental disorders in second trimester O99.342 ; Bipolar affective disorder, remission status unspecified F31.9 and Unplanned Z34.[address] [id number], [place] [id number] Sep, [address] [id number], [place] [address]8859 Jul, test positive Z32.[address] [id number], [place] 587723[address] Mar, Mild intermittent asthma with acute exacerbation J45.21 and Hives L50.[address] [id number], [place] [id number] Dec, Dysuria 788.1 ; UTI symptoms 788.99 and Hematuria 599.70 IMMUNIZATIONS No Known Immunizations SOCIAL HISTORY Never Assessed REASON FOR VISIT Requests return call PLAN OF CARE VITAL SIGNS MEDICATIONS Medication Instructions Dosage Frequency Start Date End Date Duration Status Cetirizine HCl 10 mg Orally Once a day 1 tablet 24h Oct, Mar, 30 day(s) Active RESULTS No Results PROCEDURES No Known procedures [...] History mental health Hospitalization History surgeries from [facility] 08/2016 Hospitalization History [facility] Had small blood spots and was afraid of miscarriage. Had an OB check and was cleared and sent home 09/29/2017
--- OUTSIDE RECORDS SUMMARY | 2018-03-09 21:14 | XMS REPORT ---
Author Author VALERIE VALLES [facility] CenterMarketVibeTER Address [address] [place] [address] Care Team Providers Care Screwmaker Automatic Name Role Phone VALERIE VALLES Unavailable PROBLEMS Type Condition ICD9-CM Code WTO12-BA Code Onset Dates Condition Status SNOMED Code Problem Seasonal allergies J30.2 Active 404474298 Problem Bipolar affective disorder, remission status unspecified F31.9 Active 43701194 Problem Unplanned Z34.90 Active 53771477 Problem Mild intermittent asthma with acute exacerbation J45.21 Active 208456025 Problem with mental disorders in second trimester O99.342 Active 962762673 Problem Supervision of with insufficient care in second trimester O09.32 Active 50238352 ALLERGIES No Information ENCOUNTERS Encounter Location Date Diagnosis [facility] [address] [id number], [place] [id number] Oct, Seasonal allergies J30.2 [facility]PITALMarketVibeJACQUELINE VILLE [address] [facility] [address] [id number], [place] [id number] Sep, [facility]made.comSMITHJACQUELINE VILLE [address] [facility] [address] [id number], [place] [address] Sep, Supervision of with insufficient care in second trimester O09.32 ; with mental disorders in second trimester O99.342 and Bipolar affective disorder, remission status unspecified F31.9 [facility]PITALEDP BiotechBUS [address] [facility] [id number], [place] [id number] Sep, [facility]ITALMarketVibeTER [address] [id number], [place] [id number] Sep, 2018 Supervision of with insufficient care in second trimester O09.32 ; with mental disorders in second trimester O99.342 ; Bipolar affective disorder, remission status unspecified F31.9 and Unplanned Z34.90 [facility]PITALMarketVibeKABA [facility] [address] [id number] [place] [id number] Sep, [facility]OSPITALNARENDRA Garcia [facility] [address] [id number] [place] [phone] Jul, test positive Z32.01 [facility] HOSPITALNARENDRA Garcia [facility] [address] [id number], [place] [id number] Mar, Mild intermittent asthma with acute exacerbation J45.21 and Hives L50.9 [facility] NORTHMaribeth Garcia [facility] [address] [id number] [place] [id number] Dec, Dysuria 788.1 ; UTI symptoms 788.99 and Hematuria 599.70 IMMUNIZATIONS No Known Immunizations SOCIAL HISTORY Never Assessed REASON FOR VISIT test (walk-in)-Cherelle LOPEZ PLAN OF CARE VITAL SIGNS MEDICATIONS Unknown Medications RESULTS Name Result Date Reference Range TEST, URINE (IN HOUSE) 2017-07-17 RESULTS POSITIVE Lot # [id number] Control + Exp date 06/03 PROCEDURES Procedure Date Ordered Result Body Site URINE TEST July 17, 2017 INSTRUCTIONS MEDICATIONS ADMINISTERED No Known Medications [...]
--- OUTSIDE RECORDS SUMMARY | 2018-03-09 21:14 | XMS REPORT ---
Author Author NATY RODRIGUEZ Organization [facility] Address [address] [place] [address] Care Team Providers Care Road Design Draftsperson Name Role Phone MELINANOLBERTOAYAANFAUSTO CardT Unavailable PROBLEMS Type Condition ICD9-CM Code FYZ84-SF Code Onset Dates Condition Status SNOMED Code Problem Seasonal allergies J30.2 Active 256429424 Problem Bipolar affective disorder, remission status unspecified F31.9 Active 23915567 Problem Unplanned Z34.90 Active 95350672 Problem Mild intermittent asthma with acute exacerbation J45.21 Active 174890194 Problem with mental disorders in second trimester O99.342 Active 047799729 Problem Supervision of with insufficient care in second trimester O09.32 Active 95590765 ALLERGIES No Information ENCOUNTERS Encounter Location Date Diagnosis [address] [id number] [place] [id number] Nov, [facility] [address] [id number], [place] [id number] Oct, Seasonal allergies J30.2 [facility] [address] [id number], [place] [id number] Sep, [facility] [address] [id number], [place] [address] Sep, Supervision of with insufficient care in second trimester O09.32 ; with mental disorders in second trimester O99.342 and Bipolar affective disorder, remission status unspecified F31.[address] [id number] [place] [id number] 13 Sep, 2017 [facility] [address] [id number], [place] [id number] Sep, Supervision of with insufficient care in second trimester O09.32 ; with mental disorders in second trimester O99.342 ; Bipolar affective disorder, remission status unspecified F31.9 and Unplanned Z34.90 [facility] SMITH[address] [id number], [place] [id number] Sep, [facility] SMITH Mt[address] [place] [address] AVE [id number], [place] [phone] Jul, test positive Z32.01 [address] [id number], [place] [id number] Mar, Mild intermittent asthma with acute exacerbation J45.21 and Hives L50.[address] [id number], [place] [id number] Dec, Dysuria 788.1 ; UTI symptoms 788.99 and Hematuria 599.70 IMMUNIZATIONS No Known Immunizations SOCIAL HISTORY Never Assessed REASON FOR VISIT Requests return call/UNABLE TO CONTACT PLAN OF CARE VITAL SIGNS MEDICATIONS Unknown [...]
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
--- OUTSIDE RECORDS SUMMARY | 2018-03-09 21:14 | XMS REPORT ---
Author Author JEREMY ALEX Organization [facility] Address [address] [place] [address] Care Team Providers Care Installer Metal Flooring Name Role Phone JEREMY ALEX Unavailable PROBLEMS Type Condition ICD9-CM Code [id number] Code Onset Dates Condition Status SNOMED Code Problem Mild intermittent asthma with acute exacerbation J45.21 Active 102625620 ALLERGIES Substance Reaction Event Type Date Status Penicillin V Potassium hives Drug Allergy Mar, Active Depakote rash Drug Allergy Mar, Active SOCIAL HISTORY No smoking Hx information available PLAN OF CARE Activity Details Follow Up prn Reason: VITAL SIGNS Height 61.5 in 2016-03-30 Weight 126.6 lbs 2016-03-30 Temperature 97.6 degrees Fahrenheit 2016-03-30 Heart Rate 86 bpm 2016-03-30 Respiratory Rate 18 2016-03-30 BMI 23.53 kg/m2 2016-03-30 Blood pressure systolic 98 mmHg 2016-03-30 Blood pressure diastolic 58 mmHg 2016-03-30 MEDICATIONS Medication Instructions Dosage Frequency Start Date End Date Duration Status Cetirizine HCl 10 mg Orally Once a day 1 tablet 24h Mar, Active ProAir HFA 108 (90 Base) MCG/ACT Inhalation every 6 hrs 2 puffs as needed 6h Mar, Active RESULTS No Results PROCEDURES Procedure Date Ordered Related Diagnosis Body Site Office Visit, Est Pt., Level 3 Mar 30, 2016 IMMUNIZATIONS No Known Immunizations
[2018-03-09 21:22] LABS: BASOPHILS % (AUTO) 0 % (0-10); EOSINOPHILS # (AUTO) 0.1 10^3/uL (0.0-0.3); EOSINOPHILS % (AUTO) 1 % (0-10); HEMATOCRIT 37 % (35-52); HEMOGLOBIN 12.6 G/DL (11.5-16.0); LYMPHOCYTES # (AUTO) 1.5 X 10^3 (1.0-4.0); LYMPHOCYTES % (AUTO) 19 % (12-44); MEAN CORPUSCULAR HEMOGLOBIN 29 PG (25-34); MEAN CORPUSCULAR HGB CONC 34 G/DL (32-36); MEAN CORPUSCULAR VOLUME 84 FL (80-99); MEAN PLATELET VOLUME 10.5 FL (7.4-10.4); MONOCYTES # (AUTO) 0.7 X 10^3 (0.0-1.0); MONOCYTES % (AUTO) 9 % (0-12); NEUTROPHILS # (AUTO) 5.9 X 10^3 (1.8-7.8); NEUTROPHILS % (AUTO) 72 % (42-75); PLATELET COUNT 212 10^3/uL (130-400); RED BLOOD COUNT 4.41 10^6/uL (4.35-5.85); RED CELL DISTRIBUTION WIDTH 12.9 % (10.0-14.5); WHITE BLOOD COUNT 8.3 10^3/uL (4.3-11.0)
[2018-03-09 22:00] VITALS: BP 135/79
[2018-03-09] MEDS ORDERED: CATHETER FLUSH 10 ML SYR IV SCH (22:00)
[2018-03-09 22:30] VITALS: BP 123/81
[2018-03-09 23:00] VITALS: BP 130/84
[2018-03-09 23:30] VITALS: BP 128/83
[2018-03-10] VITALS (44 sets, daily range): BP systolic 99–147; BP diastolic 62–93
[2018-03-10] MEDS ORDERED: fentaNYL INJECTION 100 MCG/2 ML AMP ONE ×2 (01:54→04:10)
[2018-03-10] MEDS ORDERED: fentaNYL INJECTION 100 MCG/2 ML AMP IVP PRN (02:00)
[2018-03-10] MEDS ORDERED: OXYTOCIN/NORMAL SALINE 500 ML IV SCH (02:08)
[2018-03-10] MEDS ORDERED: SUFENTA 0.6MCG/ML BUPIVA 0.125 100 ML ONE (02:26)
[2018-03-10] MEDS: LACTATED RINGERS 1,000 ML IV SCH (02:33)
[2018-03-10] MEDS ORDERED: LACTATED RINGERS 1,000 ML IV ONE (04:29)
[2018-03-10] MEDS ORDERED: NALOXONE 0.4 MG/ML 1 ML (NARCAN) VIAL IV PRN ×2 (04:30)
[2018-03-10] MEDS ORDERED: ONDANSETRON 4 MG/2 ML (SDV) Z0FRAN IV PRN (04:30)
[2018-03-10] MEDS ORDERED: diphenhydrAMINE 50 MG/ML INJ (BENADRYL) IV PRN (04:30)
[2018-03-10] MEDS ORDERED: EPIDURAL (SUFENTA 0.6MCG/ML BUPIVA 0.125%) 100 ML BAG EPI PRN (04:30)
[2018-03-10] MEDS ORDERED: METOCLOPRAMIDE INJ 10 MG/2 ML (REGLAN) IV PRN (04:30)
[2018-03-10] MEDS: OXYTOCIN/NORMAL SALINE 500 ML IV SCH ×2 (07:43→08:21)
[2018-03-10] MEDS ORDERED: LIDOCAINE 1% INJ 20 ML 20 ML VIAL ONE (07:45)
--- NOTE | 2018-03-10 08:08 | OB Labor & Delivery Record ---
Vag Delivery Note Vag Delivery Note Date of Delivery: 03/10/18 Preoperative Diagnosis: Marian Maxwell is a 22 /Para 3/0 , Gestational Age (wks)39with 1 day Postoperative Diagnosis: Surgeon: HAM LOYOLA Anesthesia: epidural Delivery Type: Findings: Viable female , apgars 8/9, weight 6#0 Lacerations: bilateral periurethral Intact placenta with 3 vessel cord. No nuchal cord, body cord or shoulder dystocia Estimated Blood Loss: 250 ml Complications: None Condition: Stable Description of Procedure: The patient is a G3 now P1 who presented for IOL at 39w1d for suspected IUFD. She was admitted and informed consent was obtained. Her labor course was remarkable for bradycardia with pushing, brief recovery to low 100s between. She progressed to complete dilatation and began to push. She was then set up for delivery. The infant's head was delivered atraumatically in the LINDA position. The shoulders and remainder of the 's body were then delivered without difficulty. Upon delivery, the was vigorous and placed on maternal abdomen. The cord was doubly clamped and cut, cord blood gas obtained, and the infant was handed off to the pediatric staff. An intact placenta with 3-vessel cord delivered via Delacruz and there was found to be minimal bleeding.~ Vigorous fundal massage was performed and the fundus was found to be firm. IV oxytocin was given. Examination of the vagina and perineum revealed a bilateral periurethral laceration, left small and hemostatic , right repaired in the simple running fashion with 3-0 rapide suture. Following the repair, sponge, instrument and needle counts were correct. Mom and baby were both in stable condition in the labor suite. Vitals - Labs Vital Signs - I&O Vital Signs Date Time Temp Pulse Resp B/P (MAP) Pulse Ox O2 Delivery O2 Flow Rate FiO2 03/10/18 07:00 64 18 137/86 (103) 100 03/10/18 06:45 66 18 139/80 (99) 98 03/10/18 06:30 59 18 127/77 (94) 98 03/10/18 06:15 56 18 122/85 (97) 97 03/10/18 06:00 97.5 55 18 97 03/10/18 05:45 54 18 132/93 (106) 98 OxyMask 10.00 03/10/18 05:30 54 18 133/76 (95) 98 OxyMask 10.00 03/10/18 05:15 53 18 133/73 (93) 99 Room Air 03/10/18 05:00 52 18 121/83 (96) 99 Room Air 03/10/18 04:45 58 18 113/77 (89) 99 Room Air 03/10/18 04:30 73 18 115/75 (88) 98 Room Air 03/10/18 04:25 67 18 113/66 (82) 97 Room Air 03/10/18 04:20 67 18 112/65 (81) 98 Room Air 03/10/18 04:11 78 18 115/76 (89) 98 Room Air 03/10/18 04:06 63 18 116/68 (84) 98 Room Air 03/10/18 04:01 67 18 99/71 (80) 98 Room Air 03/10/18 03:56 67 18 117/67 (84) 99 Room Air 03/10/18 03:51 63 18 104/79 (87) 98 Room Air 03/10/18 03:46 60 18 121/83 (96) 98 Room Air 03/10/18 03:41 69 18 116/72 (87) 100 Room Air 03/10/18 03:36 69 18 123/79 (94) 100 Room Air 03/10/18 03:31 87 18 147/84 (105) 100 Room Air 03/10/18 03:30 60 18 130/80 (97) 97 Room Air 03/10/18 03:15 59 18 128/76 (93) 97 Room Air 03/10/18 03:00 98.3 75 18 131/80 (97) 97 Room Air 03/10/18 02:45 82 18 130/78 (95) 97 Room Air 03/10/18 02:30 70 18 123/86 (98) Room Air 03/10/18 02:15 64 18 121/70 (87) Room Air 03/10/18 02:00 75 18 133/81 (98) Room Air 03/10/18 01:30 70 18 122/86 (98) Room Air 03/10/18 01:00 68 18 124/81 (95) Room Air 03/10/18 00:30 75 18 123/62 (82) Room Air 11/26/18 00:00 65 18 122/81 (95) Room Air 03/09/18 23:30 59 18 128/83 (98) Room Air 03/09/18 23:00 97.3 60 18 130/84 (99) Room Air 03/09/18 22:30 65 18 123/81 (95) Room Air 03/09/18 22:00 64 18 135/79 (97) Room Air 03/09/18 21:00 97.7 64 18 130/79 (96) Room Air Labs Laboratory Tests 03/09/18 21:10: White Blood Count 8.3, Red Blood Count 4.41, Hemoglobin 12.6, Hematocrit 37, Mean Corpuscular Volume 84, Mean Corpuscular Hemoglobin 29, Mean Corpuscular Hemoglobin Concent 34, Red Cell Distribution Width 12.9, Platelet Count 212, Mean Platelet Volume 10.5H, Neutrophils (%) (Auto) 72, Lymphocytes (%) (Auto) 19 , Monocytes (%) (Auto) 9, Eosinophils (%) (Auto) 1, Basophils (%) (Auto) 0, Neutrophils # (Auto) 5.9, Lymphocytes # (Auto) 1.5, Monocytes # (Auto) 0.7, Eosinophils # (Auto) 0.1, Basophils # (Auto) 0.0 HAM LOYOLA MD Mar 10, 2018 8:08 am
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
[2018-03-10] MEDS ORDERED: BENZOCAINE/MENTHOL (DERMOPLAST) 56 ML CAN TP PRN (09:00)
[2018-03-10] MEDS ORDERED: WITCH HAZEL(TUCKS) 40 EA JAR TOP PRN (09:00)
[2018-03-10] MEDS: IBUPROFEN 600 MG (MOTRIN) TAB PO SCH ×3 (09:16→20:32)
[2018-03-10] MEDS: CATHETER FLUSH 10 ML SYR IV SCH (21:13)
[2018-03-11] VITALS: BP 116/75
[2018-03-11] MEDS: CATHETER FLUSH 10 ML SYR IV SCH (03:59)
[2018-03-11 04:00] VITALS: BP 104/68
[2018-03-11] MEDS: IBUPROFEN 600 MG (MOTRIN) TAB PO SCH ×4 (04:00→23:51)
[2018-03-11 06:09] LABS: BASOPHILS % (AUTO) 0 % (0-10); EOSINOPHILS # (AUTO) 0.1 10^3/uL (0.0-0.3); EOSINOPHILS % (AUTO) 1 % (0-10); HEMATOCRIT 35 % (35-52); HEMOGLOBIN 11.7 G/DL (11.5-16.0); LYMPHOCYTES # (AUTO) 1.4 X 10^3 (1.0-4.0); LYMPHOCYTES % (AUTO) 13 % (12-44); MEAN CORPUSCULAR HEMOGLOBIN 28 PG (25-34); MEAN CORPUSCULAR HGB CONC 33 G/DL (32-36); MEAN CORPUSCULAR VOLUME 86 FL (80-99); MEAN PLATELET VOLUME 10.6 FL (7.4-10.4); MONOCYTES # (AUTO) 0.8 X 10^3 (0.0-1.0); MONOCYTES % (AUTO) 8 % (0-12); NEUTROPHILS # (AUTO) 8.2 X 10^3 (1.8-7.8); NEUTROPHILS % (AUTO) 79 % (42-75); PLATELET COUNT 187 10^3/uL (130-400); RED BLOOD COUNT 4.13 10^6/uL (4.35-5.85); WHITE BLOOD COUNT 10.5 10^3/uL (4.3-11.0)
--- NOTE | 2018-03-11 07:36 | Anesthesia-Regional Post-Op ---
Regional Patient Condition Mental Status: Alert, Oriented x3 Circulation: Same as Pre-Op Headache: Absent Sensation: Full Recovery Motor Block: Absent Post Op Complications Complications None Follow Up Care/Instructions Patient Instructions None needed. Anesthesia/Patient Condition Patient is doing well, no complaints, stable vital signs, no apparent adverse anesthesia problems. No complications reported per nursing. ALAYNA MCCAULEY CRNA Mar 11, 2018 07:36
[2018-03-11 08:30] VITALS: BP 108/67
--- NOTE | 2018-03-11 08:53 | Progress Note (SOAP) ---
Subjective Subjective/Events-last exam No complaints. Baby not feeding well. Review of Systems Date Seen by Provider: Mar 11, 2018 Time Seen by Provider: 08:52 Objective Exam Last Set of Vital Signs Vital Signs Date Time Temp Pulse Resp B/P (MAP) Pulse Ox O2 Delivery O2 Flow Rate FiO2 03/11/18 04:00 97.1 53 18 104/68 (80) 98 Room Air 03/10/18 05:45 10.00 Capillary Refill : I&O Intake and Output 03/11/18 00:00 Intake Total 1500 ml Balance 1500 ml Intake IV Total 1500 ml General: Alert, Oriented X3, Cooperative Psych/Mental Status: Mood NL Results/Procedures Lab Laboratory Tests 03/11/18 05:38: White Blood Count 10.5, Red Blood Count 4.13L, Hemoglobin 11.7, Hematocrit 35, Mean Corpuscular Volume 86, Mean Corpuscular Hemoglobin 28, Mean Corpuscular Hemoglobin Concent 33, Red Cell Distribution Width 13.0, Platelet Count 187, Mean Platelet Volume 10.6H, Neutrophils (%) (Auto) 79H, Lymphocytes (%) (Auto) 13, Monocytes (%) (Auto) 8, Eosinophils (%) (Auto) 1, Basophils (%) (Auto) 0, Neutrophils # (Auto) 8.2H, Lymphocytes # (Auto) 1.4, Monocytes # (Auto) 0.8, Eosinophils # (Auto) 0.1, Basophils # (Auto) 0.0 Assessment/Plan Assessment/Plan Assessment & Plan s/p at term Routine pp care. Anticipate DC home tomorrow. Clinical Quality Measures DVT/VTE Risk/Contraindication: Risk Factor Score Per Nursin RFS Level Per Nursing on Admit: 1=Low/No VTE PPX ZBIGNIEW TODD DO Mar 11, 2018 08:53
[2018-03-11] MEDS: PRENATAL VITAMIN 1 EA TAB PO SCH (10:29)
[2018-03-11 13:00] VITALS: BP 133/73
[2018-03-11 17:15] VITALS: BP 123/78
[2018-03-11 23:52] VITALS: BP 125/77
[2018-03-12 05:46] VITALS: BP 118/72
[2018-03-12] MEDS: IBUPROFEN 600 MG (MOTRIN) TAB PO SCH ×3 (05:46→18:21)
[2018-03-12] MEDS: PRENATAL VITAMIN 1 EA TAB PO SCH (10:30)
[2018-03-12] MEDS ORDERED: IBUP-844 PO (10:56)
--- NOTE | 2018-03-12 10:57 | Discharge Instructions ---
Discharge Inst-Women's Serv Depart Medications New, Converted or Re-Newed RX: Call to Patients Pharmacy New Medications: Ibuprofen (Ibu) 600 Mg Tablet 600 MG PO Q6H, #90 TAB 1 Refill Continued Medications: Vit W-Ca,Fe,FA(<1 mg) ( Formula) 1 Each Tablet 1 EACH PO, TAB Follow Up/Instructions Goal/Follow Up: Follow up with Dr. Sykes in 6 weeks Activity Activity: Activity as Tolerated Driving Instructions: You May Drive Nothing Inside Vagina: No Douching, No [place], No Tampons Diet Discharge Diet: No Restrictions Symptoms to Report to : Bleeding Excessive, Pain Increased, Fever Over 101 Degrees F, Vaginal Bleeding Increase, Vaginal Discharge Foul, Dizziness/Fainting , Shortness of Breath For Any Problems or Questions: Contact Your Physician ZBIGNIEW TODD DO Mar 12, 2018 10:57
--- NOTE | 2018-03-12 11:00 | Discharge Summary ---
Diagnosis/Chief Complaint Date of Admission Mar 09, 2018 at 21:08 Date of Discharge 03/12/18 Admission Diagnosis Admission Diagnosis Induction of labor 39 weeks gestation Suspected IUGR Discharge Diagnosis s/p Discharge Summary-OBS Procedures None. Discharge Physical Examination Allergies: Coded Allergies: Penicillins (Verified Allergy, Unknown, 03/09/18) divalproex sodium (Verified Allergy, Unknown, 03/09/18) Vitals & I&Os Vital Sign - Last 12Hours Date Time Temp Pulse Resp B/P (MAP) Pulse Ox O2 Delivery O2 Flow Rate FiO2 03/12/18 05:46 98.3 65 18 118/72 (87) 97 Room Air 03/10/18 05:45 10.00 General Appearance: Alert, Oriented X3, Cooperative Psych/Mental Status: Mood NL Hospital Course Routine course Labs Laboratory Tests 03/09/18 21:10: White Blood Count 8.3, Red Blood Count 4.41, Hemoglobin 12.6, Hematocrit 37, Mean Corpuscular Volume 84, Mean Corpuscular Hemoglobin 29, Mean Corpuscular Hemoglobin Concent 34, Red Cell Distribution Width 12.9, Platelet Count 212, Mean Platelet Volume 10.5H, Neutrophils (%) (Auto) 72, Lymphocytes (%) (Auto) 19 , Monocytes (%) (Auto) 9, Eosinophils (%) (Auto) 1, Basophils (%) (Auto) 0, Neutrophils # (Auto) 5.9, Lymphocytes # (Auto) 1.5, Monocytes # (Auto) 0.7, Eosinophils # (Auto) 0.1, Basophils # (Auto) 0.0 03/11/18 05:38: White Blood Count 10.5, Red Blood Count 4.13L, Hemoglobin 11.7, Hematocrit 35, Mean Corpuscular Volume 86, Mean Corpuscular Hemoglobin 28, Mean Corpuscular Hemoglobin Concent 33, Red Cell Distribution Width 13.0, Platelet Count 187, Mean Platelet Volume 10.6H, Neutrophils (%) (Auto) 79H, Lymphocytes (%) (Auto) 13, Monocytes (%) (Auto) 8, Eosinophils (%) (Auto) 1, Basophils (%) (Auto) 0, Neutrophils # (Auto) 8.2H, Lymphocytes # (Auto) 1.4, Monocytes # (Auto) 0.8, Eosinophils # (Auto) 0.1, Basophils # (Auto) 0.0 Discharge Instructions to patient/family Please see electronic discharge instructions given to patient. Discharge Medications Reviewed and agree with Discharge Medication list on patient's Discharge Instruction sheet Clinical Quality Measures DVT/VTE Risk/Contraindication: Risk Factor Score Per Nursin RFS Level Per Nursing on Admit: 1=Low/No VTE PPX ZBIGNIEW TODD DO Mar 12, 2018 11:00
[2018-03-12 12:00] VITALS: BP 127/75
[2018-03-12 18:00] VITALS: BP 118/82
[2018-03-12 21:50] VITALS: BP 120/72
== END 2018-03-12 21:50 | disposition home or self-care (01) | DRG 807 ==
LOC: LDRP 20:16 → WSo 20:16 → LDRP 21:08
PROVIDERS: ADMIT Family Medicine; ATTEND Family Medicine
PROC: 10E0XZZ Delivery of Products of Conception, External Approach (ICD-10-PCS; principal; 2018-03-10)
PROC: 0UQMXZZ Repair Vulva, External Approach (ICD-10-PCS; 2018-03-10)
PROC: 3E0P7GC Introduction of Other Therapeutic Substance into Female Reproductive, Via Natural or Artificial Opening (ICD-10-PCS; 2018-03-10)
DX: O36.5930 Maternal care for other known or suspected poor fetal growth, third trimester, not applicable or unspecified (principal); O71.82 Other specified trauma to perineum and vulva; O76 Abnormality in fetal heart rate and rhythm complicating labor and delivery; O99.52 Diseases of the respiratory system complicating childbirth; J45.909 Unspecified asthma, uncomplicated; O99.344 Other mental disorders complicating childbirth; F31.9 Bipolar disorder, unspecified; Z87.891 Personal history of nicotine dependence; Z3A.39 39 weeks gestation of pregnancy; Z37.0 Single live birth
CPT/HCPCS: 36415; 85025; 86850; 86900; 86901

== ENCOUNTER 2022-03-18 20:36 | Inpatient (IN) | payer MEDICAID ==
[~2022-03-18] VITALS: Ht 160 cm; Wt 76.2 kg
[~2022-03-18 20:36] MED LIST: IBUP-844 PO; PREN-8 PO
--- OUTSIDE RECORDS SUMMARY | 2022-03-18 20:39 | XMS REPORT | Clinical Summary ---
Author Author [facility] Organization [facility] Address Unknown Phone Unavailable Care Team Providers Care Mid Level Practitioner Name Role Phone No Pcp, Na PCP Unavailable Source Comments Some departments are not documenting in the electronic medical record. If you d o not see the information that you expected, contact Release of Information in formerly [facility] [employer] Information Management department at [phone] for further assistan ce in locating additional records.[facility] Allergies Comments Active Allergy Reactions Severity Noted Date Divalproex UNKNOWN Low 08/26/2016 Penicillins UNKNOWN Low 08/26/2016 Medications End Date Status Medication Sig Dispensed Refills Start Date Active ACETAMINOPHEN (TYLENOL Take by 0 PO) mouth as Needed. Active Problems Problem Noted Date Closed fracture of lumbar vertebra without spinal cor d injury with routine 11/26/2016 healing Back pain 11/26/2016 Overview: Added automatically from request for viral diallo [id number] Acute pain due to trauma 09/03/2016 Acute stress reaction 09/03/2016 Muscle spasm 09/03/2016 Sleep disturbance 09/03/2016 Bimalleolar ankle fracture 08/27/2016 Knee laceration 08/27/2016 Lumbar vertebral fracture 08/26/2016 Immunizations Name Administration Dates Next Due Td vaccine (>=7YO) PF IM 08/27/2016 (Decavac, Tenivac) Surgical History Surgery Date Site/Laterality Comments ANKLE SURGERY 09/11/2016 Ankle/Left OPEN REDUCTION INTERNAL FIXATION ANKLE performed by Yonis De Leon MD at [facility] Medical devices from this surgery are i n the Medical Devices section. LUMBAR FUSION 08/28/2016 Spine LUMBAR 3-5 MINI NITHYA INVASIVE FUSION performed by Lumbar/N/A Sammi Patel MD at [facility] Medical devices from this surgery are i n the Medical Devices section. Medical History Medical History Date Comments Asthma Scoliosis Sleep apnea Seizure (HCC) "It has been a few months s pilar I had one and cannot remember-does not take medicine" Family History Medical History Relation Name Comments Asthma Father Seizures Maternal Uncle Diabetes Mother Relation Name Status Comments Father Maternal Uncle Mother Social History Date Tobacco Use Types Packs/Day Years Used Quit: 08/27/2014 Smoking Tobacco: Never Cigarettes 0 0 Tobacco Cessation: Counseling Given: No Comments Alcohol Use Standard Drinks/Week No 0 (1 standard drink = 0.6 o z pure alcohol) Sex Assigned at Date Recorded Not on file Obstetrics History Comments 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14 Last Filed Vital Signs Reading Time Taken Comments Vital Sign 116/69 11/26/2016 11:42 AM CDT Blood Pressure 58 11/26/2016 11:42 AM CDT Pulse 37 C (98.6 F) 10/26/2016 1:12 PM CDT Temperature 16 11/26/2016 11:42 AM CDT Respiratory Rate 100% 11/26/2016 11:42 AM CDT Oxygen Saturation - - Inhaled Oxygen Concentration 55.3 kg (122 lb) 11/26/2016 11:42 AM CDT Weight 154.9 cm (5' 1") 11/26/2016 11:42 AM CDT Height 23.05 11/26/2016 11:42 AM CDT Body Mass Index Plan of Treatment Health Maintenance Due Date Last Done Comments COVID-19 VACCINE (#1) 05/24/1995 HIV SCREENING 2009 HEPATITIS C SCREENING 2012 PHYSICAL (COMPREHENSIVE) 2012 EXAM CERVICAL CANCER SCREENING 11/22/2015 DTAP/TDAP VACCINES (1 - 08/28/2016 08/27/2016 Tdap) DEPRESSION SCREENING 04/15/2021 INFLUENZA VACCINE 11/13/2021 HPV VACCINES Aged Out No longer eligible based on patient's age to complete this topic Medical Devices Device Identifier Shelf Expiration Date Model / Serial / L ot Implanted Type Area Manufactur er [id number] / NA / NA Screw Bone 6mm 40mm Viper 2 N/A: Spine UNIDENTIF I Titanium Spine Cannulated Lumbar ED MFG Implanted: Qty: 2 on 08/28/2016 by Sammi Patel MD at [facility] [id number] / NA / NA Screw Bone 4mm 2.5mm 40mm 14mm Left: Ankle MANASA Stain[employer] Steel Small Hexagon MANASA US Implanted: Qty: 1 on 09/11/2016 by Yonis De Leon MD at [facility] Results Not on filefrom Last 3 Months Insurance Type Payer Benefit Subscriber ID Effective Phone Address Plan / Dates Group Medicaid [employer] [place] [place] [id number] 2010- [address] [place] [address] Medicaid [employer] [id number] 2016- [address] [place] [phone] Marian Maxwell Third Self [address] [place] (Home) [place] [address] Liability Advance Directives Date Inactivated Comments Code Status Date Activated 09/07/2016 12:07 AM Full Code 08/26/2016 8:18 PM Provider has discussed Code Status No, more discussi on w/Patient or Family? needed Care Teams Start Date End Date Mid Level Practitioner Relationship Specialty 08/26/16 No Pcp, Na PCP - General
[2022-03-18] MEDS ORDERED: LACTATED RINGERS 1,000 ML IV SCH (21:00)
[2022-03-18] MEDS ORDERED: MINERAL OIL 30 ML UDC TOP PRN (21:00)
[2022-03-18 21:20] VITALS: BP 136/69
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
[2022-03-18 21:43] LABS: BASOPHILS % (AUTO) 0 % (0-10); EOSINOPHILS # (AUTO) 0.1 10^3/uL (0.0-0.3); EOSINOPHILS % (AUTO) 1 % (0-10); HEMATOCRIT 32 % (35-52); HEMOGLOBIN 10.5 g/dL (11.5-16.0); LYMPHOCYTES # (AUTO) 1.1 10^3/uL (1.0-4.0); LYMPHOCYTES % (AUTO) 16 % (12-44); MEAN CORPUSCULAR HEMOGLOBIN 25 pg (25-34); MEAN CORPUSCULAR HGB CONC 32 g/dL (32-36); MEAN CORPUSCULAR VOLUME 77 fL (80-99); MEAN PLATELET VOLUME 10.8 fL (9.0-12.2); MONOCYTES # (AUTO) 0.6 10^3/uL (0.0-1.0); MONOCYTES % (AUTO) 8 % (0-12); NEUTROPHILS # (AUTO) 5.1 10^3/uL (1.8-7.8); NEUTROPHILS % (AUTO) 73 % (42-75); PLATELET COUNT 178 10^3/uL (130-400); WHITE BLOOD COUNT 6.9 10^3/uL (4.3-11.0)
[2022-03-18] MEDS ORDERED: LACTATED RINGERS 1,000 ML IV ONE (21:47)
[2022-03-18] MEDS ORDERED: ceFAZolin INJECTION 2,000 MG in NS (IVPB) 50 ML IV SCH (22:25)
[2022-03-18] MEDS ORDERED: D5 LR IV SOLUTION 1,000 ML IV ONE (22:56)
[2022-03-18] MEDS: D5 LR IV SOLUTION 1,000 ML IV SCH (23:00)
[2022-03-19] VITALS (85 sets, daily range): BP systolic 91–146; BP diastolic 53–93
[2022-03-19] MEDS ORDERED: fentaNYL INJ 100 MCG/2 ML AMP IVP PRN (04:00)
[2022-03-19] MEDS: D5 LR IV SOLUTION 1,000 ML IV SCH ×3 (06:08→23:29)
[2022-03-19] MEDS ORDERED: OXYTOCIN PRE-MIX DRIP 500 ML IV SCH (06:45)
[2022-03-19] MEDS: ceFAZolin INJECTION 1,000 MG in NS (IVPB) 50 ML IV SCH ×3 (07:01→23:28)
[2022-03-19] MEDS: CATHETER FLUSH 10 ML SYR IV SCH ×2 (07:30→14:00)
[2022-03-19] MEDS ORDERED: fentaNYL 2 mcg/ml BUPIVA 0.125 100 ML ONE (07:41)
--- NOTE | 2022-03-19 08:50 | Labor Progress Note ---
YUMIKOCINDY Maribeth 03/19/22 0850: Labor Progress Note Labor Progress Note Date Seen by Provider: Mar 19, 2022 Time Seen by Provider: 08:00 Subjective: Pt denies complaints. States she feels the contractions have gotten stronger but she is breathing through them and doing well. She reports some cramping in her thighs with contractions. Objective: BP111/60 P65 RR16 O2 98 Cervical exam: [1/-2] Consistency: [thick] Position: [midposition] Presentation: [Vertex] heart tones: [150] beats per minute, [moderate] variability, [+] reactive Tocometer: [3-4] ctx/10 minutes Assessment/Plan: Marian Maxwell is a (26 /Para 5 / 1,Gestational Age (wks)40 here for [induction of labor]. CEFM/TOCO Continue pitocin Anesthesia: [epidural to be put in this morning] Anticipate vaginal delivery. Vitals - Labs Vital Signs - I&O Vital Signs Date Time Temp Pulse Resp B/P (MAP) Pulse Ox O2 Delivery O2 Flow Rate FiO2 03/19/22 08:23 67 20 131/93 (106) 98 Room Air 03/19/22 08:00 65 16 138/64 (88) 99 Room Air 03/19/22 07:30 71 16 116/69 (85) 98 Room Air 03/19/22 07:02 36.2 68 16 122/74 (90) 99 Room Air 03/19/22 06:32 66 16 113/61 (78) 98 Room Air 03/19/22 06:02 65 16 111/60 (77) 98 Room Air 03/19/22 05:34 57 16 121/68 (85) 98 Room Air 03/19/22 05:05 60 16 113/67 (82) 98 Room Air 03/19/22 04:32 63 16 117/67 (84) 98 Room Air 03/19/22 04:02 63 16 116/59 (78) 98 Room Air 03/19/22 03:33 62 16 95/54 (68) 98 Room Air 03/19/22 03:02 75 16 112/68 (83) 98 Room Air 03/19/22 02:38 66 16 128/61 (83) 98 Room Air 03/19/22 02:03 73 16 114/66 (82) Room Air 03/19/22 01:32 75 16 116/69 (85) 97 Room Air 03/19/22 01:03 83 16 123/79 (94) 98 Room Air 03/19/22 00:32 70 16 123/62 (82) 99 Room Air 03/19/22 00:02 36.4 74 16 118/67 (84) 97 Room Air 03/18/22 21:20 36.4 75 16 98 Room Air 03/18/22 21:20 Room Air I & O 03/19/22 07:00 Intake Total 2050 ml Balance 2050 ml Labs Laboratory Tests 03/18/22 21:25: White Blood Count 6.9, Red Blood Count 4.20, Hemoglobin 10.5L, Hematocrit 32L, Mean Corpuscular Volume 77L, Mean Corpuscular Hemoglobin 25, Mean Corpuscular Hemoglobin Concent 32, Red Cell Distribution Width 13.5, Platelet Count 178, Mean Platelet Volume 10.8, Immature Granulocyte % (Auto) 1, Neutrophils (%) (Auto) 73, Lymphocytes (%) (Auto) 16, Monocytes (%) (Auto) 8, Eosinophils (%) (Auto) 1, Basophils (%) (Auto) 0, Neutrophils # (Auto) 5.1, Lymphocytes # (Auto) 1.1, Monocytes # (Auto) 0.6, Eosinophils # (Auto) 0.1, Basophils # (Auto) 0.0, Immature Granulocyte # (Auto) 0.1 HAM LOYOLA MD 03/19/221: Labor Progress Note Labor Progress Note Time Seen by Provider: 15:30 I did not see patient at the same time as the student note. Exam per nursing, agree with documentation. CINDY CALDERON Mar 19, 2022 08:50 HAM LOYOLA MD Mar 19, 2022 21:51
[2022-03-19] MEDS: fentaNYL 2 mcg/ml BUPIVA 0.125 100 ML EPI SCH ×2 (08:58→17:18)
[2022-03-19] MEDS ORDERED: METOCLOPRAMIDE INJ 10 MG/2 ML (REGLAN) IV PRN (09:15)
[2022-03-19] MEDS ORDERED: ONDANSETRON 4 MG/2 ML (SDV) Z0FRAN IV PRN (09:15)
[2022-03-19] MEDS ORDERED: NALOXONE 0.4 MG/ML 1 ML (NARCAN) VIAL IV PRN ×2 (09:15)
[2022-03-19] MEDS ORDERED: diphenhydrAMINE 50 MG/ML INJ (BENADRYL) IV PRN (09:15)
[2022-03-19] MEDS ORDERED: LACTATED RINGERS 1,000 ML IV SCH (09:15)
--- NOTE | 2022-03-19 16:15 | Labor Progress Note ---
Labor Progress Note Labor Progress Note Date Seen by Provider: Mar 19, 2022 Time Seen by Provider: 16:00 Subjective: Pt denies complaints. Has made cerivcal change from 1 cm last night to 6 cm now with essentially no intervention- she had very brief period of pitocin this am b ut had recurrent decelerations so it was stopped. She has been 6 cm for some time now. Objective: Cervical exam: Consistency: soft Position: anterior Presentation: vertex heart tones: 140 beats per minute, moderate variability, accel noted with scalp stim Tocometer: 1-2 ctx/10 minutes Assessment/Plan: Marian Maxwell is a 26 /Para 5 / 1,Gestational Age (wks)40 here for induction of labor- but is progressing spontaneously. AROM done at time of exam with clear fluid. CEFM/TOCO Anesthesia: epidural Anticipate vaginal delivery. Vitals - Labs Vital Signs - I&O Vital Signs Date Time Temp Pulse Resp B/P (MAP) Pulse Ox O2 Delivery O2 Flow Rate FiO2 03/19/22 15:15 52 16 102/58 (73) 98 Room Air 03/19/22 15:00 75 18 115/77 (90) 98 Room Air 03/19/22 14:45 66 18 129/74 (92) 96 Room Air 03/19/22 14:30 71 18 132/63 (86) 100 Room Air 03/19/22 14:15 67 16 124/85 (98) 100 Room Air 03/19/22 14:00 67 16 125/77 (93) 100 Room Air 03/19/22 13:45 60 18 125/79 (94) 100 Room Air 03/19/22 13:30 36.4 64 18 120/73 (89) 100 Room Air 03/19/22 13:15 72 18 127/77 (94) 100 Room Air 03/19/22 13:00 60 16 116/66 (83) 100 Room Air 03/19/22 12:45 66 16 120/62 (81) 100 Room Air 03/19/22 12:30 53 18 120/69 (86) 100 Room Air 03/19/22 12:15 53 16 102/58 (73) 100 Room Air 03/19/22 12:00 51 16 97/53 (68) 100 Room Air 03/19/22 11:45 62 16 101/53 (69) 97 Room Air 03/19/22 11:30 36.4 65 16 94/54 (67) 100 Room Air 03/19/22 11:15 63 16 100/60 (73) 99 Room Air 03/19/22 11:01 61 18 104/62 (76) 98 Room Air 03/19/22 10:45 60 18 108/56 (73) 98 Room Air 03/19/22 10:30 60 16 107/62 (77) 98 Room Air 03/19/22 10:15 58 18 106/61 (76) 97 Room Air 03/19/22 10:00 55 18 112/59 (76) 100 Room Air 03/19/22 09:45 52 18 110/66 (81) 100 Room Air 03/19/22 09:27 56 18 91/55 (67) 98 Room Air 03/19/22 09:24 52 16 109/60 (76) 96 Room Air 03/19/22 09:21 66 16 112/61 (78) 96 Room Air 03/19/22 09:18 36.4 54 18 113/59 (77) 97 Room Air 03/19/22 09:15 64 16 99/54 (69) 99 Room Air 03/19/22 09:12 74 18 113/64 (80) 97 Room Air 03/19/22 09:09 81 18 108/58 (75) 97 Room Air 03/19/22 09:06 96 18 110/55 (73) 97 Room Air 03/19/22 09:03 71 18 118/64 (82) 97 Room Air 03/19/22 09:00 76 18 113/65 (81) 97 Room Air 03/19/22 08:57 67 18 121/76 (91) 97 Room Air 03/19/22 08:54 70 18 117/76 (90) 97 Room Air 03/19/22 08:51 56 18 110/68 (82) 100 Room Air 03/19/22 08:47 64 18 133/82 (99) 100 Room Air 03/19/22 08:23 67 20 131/93 (106) 98 Room Air 03/19/22 08:00 65 16 138/64 (88) 99 Room Air 03/19/22 07:30 71 16 116/69 (85) 98 Room Air 03/19/22 07:02 36.2 68 16 122/74 (90) 99 Room Air 03/19/22 06:32 66 16 113/61 (78) 98 Room Air 03/19/22 06:02 65 16 111/60 (77) 98 Room Air 03/19/22 05:34 57 16 121/68 (85) 98 Room Air 03/19/22 05:05 60 16 113/67 (82) 98 Room Air 03/19/22 04:32 63 16 117/67 (84) 98 Room Air 03/19/22 04:02 63 16 116/59 (78) 98 Room Air 03/19/22 03:33 62 16 95/54 (68) 98 Room Air 03/19/22 03:02 75 16 112/68 (83) 98 Room Air 03/19/22 02:38 66 16 128/61 (83) 98 Room Air 03/19/22 02:03 73 16 114/66 (82) Room Air 03/19/22 01:32 75 16 116/69 (85) 97 Room Air 03/19/22 01:03 83 16 123/79 (94) 98 Room Air 03/19/22 00:32 70 16 123/62 (82) 99 Room Air 03/19/22 00:02 36.4 74 16 118/67 (84) 97 Room Air 03/18/22 21:20 36.4 75 16 98 Room Air 03/18/22 21:20 Room Air I & O 03/19/22 07:00 Intake Total 2050 ml Balance 2050 ml Labs Laboratory Tests 03/18/22 21:25: White Blood Count 6.9, Red Blood Count 4.20, Hemoglobin 10.5L, Hematocrit 32L, Mean Corpuscular Volume 77L, Mean Corpuscular Hemoglobin 25, Mean Corpuscular Hemoglobin Concent 32, Red Cell Distribution Width 13.5, Platelet Count 178, Mean Platelet Volume 10.8, Immature Granulocyte % (Auto) 1, Neutrophils (%) (Auto) 73, Lymphocytes (%) (Auto) 16, Monocytes (%) (Auto) 8, Eosinophils (%) (Auto) 1, Basophils (%) (Auto) 0, Neutrophils # (Auto) 5.1, Lymphocytes # (Auto) 1.1, Monocytes # (Auto) 0.6, Eosinophils # (Auto) 0.1, Basophils # (Auto) 0.0, Immature Granulocyte # (Auto) 0.1 HAM LOYOLA MD Mar 19, 2022 16:15
[2022-03-20] VITALS (34 sets, daily range): BP systolic 99–146; BP diastolic 54–92
[2022-03-20] MEDS: fentaNYL 2 mcg/ml BUPIVA 0.125 100 ML EPI SCH (01:45)
[2022-03-20] MEDS ORDERED: OXYTOCIN PRE-MIX DRIP 500 ML IV SCH ×2 (05:45→06:45)
[2022-03-20] MEDS ORDERED: WITCH HAZEL(TUCKS) 40 EA JAR TOP PRN (06:45)
[2022-03-20] MEDS ORDERED: BENZOCAINE/MENTHOL (DERMOPLAST) 56 ML CAN TP PRN (06:45)
--- NOTE | 2022-03-20 06:47 | OB Labor & Delivery Record ---
LEA WHITEHEAD 03/20/22 0647: Vag Delivery Note Vag Delivery Note Date of Delivery: 03/20/22 Preoperative Diagnosis: Marian Maxwell is a (26 y/o /Para 5 / 1, Gestational Age 40w3d Postoperative Diagnosis: Same Surgeon: LEA WHITEHEAD Nuclear Physics Teacher: [Lea Whitehead, MS4] Anesthesia: [epidural] Delivery Type: [spontaneous vaginal delivery] Findings: Viable [female] infant, apgars [8,9], weight [pending] Lacerations: small abrasion anteriorly Intact placenta with 3 vessel cord. No nuchal cord, body cord or shoulder dystocia Estimated Blood Loss: [100] ml Complications: Prolonged labor, prolonged deceleration Condition: Stable Description of Procedure: The patient is a 26 year old female who presented [for induction of labor]. She was admitted and informed consent was obtained. Her labor course was remarkable for [prolonged labor] She progressed to complete dilatation and began to push. She was then set up for delivery. The infant's head was delivered atraumatically in the [OA] position. Labor was prolonged with a prolonged deceleration during descent. Prepared for vacuum delivery. Deceleration resolved spontaneously with further descent. The shoulders and remainder of the infant's body were then delivered without difficulty. Upon delivery, the baby was placed on mothers chest and the mouth and nares were bulb suctioned. The cord was doubly clamped and cut and the was handed off to the pediatric staff. An intact placenta with 3-vessel cord delivered via Valente and there was found to be minimal bleeding.~ Vigorous fundal massage was performed and the fundus was found to be firm. IV oxytocin was given. Examination of the vagina and perineum revealed a [small anterior] abrasian that did not need repair. Sponge, instrument and needle counts were correct. Mom and baby were both in stable condition in the labor suite. Vitals - Labs Vital Signs - I&O Vital Signs Date Time Temp Pulse Resp B/P (MAP) Pulse Ox O2 Delivery O2 Flow Rate FiO2 03/20/22 06:00 67 18 117/72 (87) Room Air 03/20/22 05:45 71 18 123/77 (92) Room Air 03/20/22 05:45 72 18 130/87 (101) Room Air 03/20/22 05:30 72 18 130/87 (101) Room Air 03/20/22 05:00 69 18 122/75 (91) Room Air 03/20/22 04:45 63 18 131/72 (91) Room Air 03/20/22 04:30 57 18 116/77 (90) Room Air 03/20/22 04:15 57 18 114/62 (79) Room Air 03/20/22 04:00 60 18 106/54 (71) Room Air 03/20/22 03:45 71 18 132/75 (94) Room Air 03/20/22 03:30 59 18 111/71 (84) Room Air 03/20/22 03:15 66 18 126/74 (91) Room Air 03/20/22 03:00 69 18 123/63 (83) Room Air 03/20/22 02:45 58 18 129/74 (92) Room Air 03/20/22 02:30 68 18 117/71 (86) 96 Room Air 03/20/22 02:15 59 18 122/76 (91) 97 Room Air 03/20/22 02:00 59 18 124/75 (91) 97 Room Air 03/20/22 01:30 56 18 127/74 (91) 99 Room Air 03/20/22 01:15 60 18 137/75 (95) 100 Room Air 03/20/22 01:00 36.0 68 18 124/92 (103) 100 Room Air 03/20/22 00:45 60 18 107/58 (74) 100 Room Air 03/20/22 00:30 66 18 106/54 (71) 100 Room Air 03/20/22 00:15 62 18 118/79 (92) 99 Room Air 03/20/22 00:00 71 18 115/80 (92) 99 Room Air 03/19/22 23:45 63 18 99/55 (70) 100 Room Air 03/19/22 23:30 75 18 121/78 (92) 98 Room Air 03/19/22 23:15 63 18 146/83 (104) 97 Room Air 03/19/22 23:00 58 18 144/89 (107) 99 Room Air 03/19/22 22:45 69 18 124/85 (98) 100 Room Air 03/19/22 22:30 73 18 128/74 (92) 100 Room Air 03/19/22 22:15 76 18 132/79 (96) 100 Room Air 03/19/22 22:00 66 18 126/59 (81) 100 Room Air 03/19/22 21:45 74 18 132/61 (84) 99 Room Air 03/19/22 21:15 55 18 141/85 (103) 100 Room Air 03/19/22 20:45 60 18 119/77 (91) 100 Room Air 03/19/22 20:30 57 18 110/66 (81) 100 Room Air 03/19/22 20:15 52 18 116/64 (81) 98 Room Air 03/19/22 20:00 57 18 111/59 (76) 100 Room Air 03/19/22 19:45 60 18 113/61 (78) 99 Room Air 03/19/22 19:30 62 18 120/76 (91) 97 Room Air 03/19/22 19:15 68 18 115/64 (81) 100 Room Air 03/19/22 18:59 36.4 71 18 125/69 (87) 100 Room Air 03/19/22 18:45 54 18 125/76 (92) 100 Room Air 03/19/22 18:30 58 16 117/58 (77) 100 Room Air 03/19/22 18:00 36.4 63 18 120/73 (89) 99 Room Air 03/19/22 17:45 70 18 130/88 (102) 100 Room Air 03/19/22 17:30 62 16 120/68 (85) 100 Room Air 03/19/22 17:15 70 16 124/73 (90) 100 Room Air 03/19/22 17:00 36.5 73 18 130/61 (84) 100 Room Air 03/19/22 16:30 57 16 126/68 (87) 100 Room Air 03/19/22 16:15 78 18 122/65 (84) 100 Room Air 03/19/22 16:00 66 18 122/66 (84) 98 Room Air 03/19/22 15:45 63 16 117/55 (75) 98 Room Air 03/19/22 15:30 36.4 53 16 94/53 (67) 98 Room Air 03/19/22 15:15 52 16 102/58 (73) 98 Room Air 03/19/22 15:00 75 18 115/77 (90) 98 Room Air 03/19/22 14:45 66 18 129/74 (92) 96 Room Air 03/19/22 14:30 71 18 132/63 (86) 100 Room Air 03/19/22 14:15 67 16 124/85 (98) 100 Room Air 03/19/22 14:00 67 16 125/77 (93) 100 Room Air 03/19/22 13:45 60 18 125/79 (94) 100 Room Air 03/19/22 13:30 36.4 64 18 120/73 (89) 100 Room Air 03/19/22 13:15 72 18 127/77 (94) 100 Room Air 03/19/22 13:00 60 16 116/66 (83) 100 Room Air 03/19/22 12:45 66 16 120/62 (81) 100 Room Air 03/19/22 12:30 53 18 120/69 (86) 100 Room Air 03/19/22 12:15 53 16 102/58 (73) 100 Room Air 03/19/22 12:00 51 16 97/53 (68) 100 Room Air 03/19/22 11:45 62 16 101/53 (69) 97 Room Air 03/19/22 11:30 36.4 65 16 94/54 (67) 100 Room Air 03/19/22 11:15 63 16 100/60 (73) 99 Room Air 03/19/22 11:01 61 18 104/62 (76) 98 Room Air 03/19/22 10:45 60 18 108/56 (73) 98 Room Air 03/19/22 10:30 60 16 107/62 (77) 98 Room Air 03/19/22 10:15 58 18 106/61 (76) 97 Room Air 03/19/22 10:00 55 18 112/59 (76) 100 Room Air 03/19/22 09:45 52 18 110/66 (81) 100 Room Air 03/19/22 09:27 56 18 91/55 (67) 98 Room Air 03/19/22 09:24 52 16 109/60 (76) 96 Room Air 03/19/22 09:21 66 16 112/61 (78) 96 Room Air 03/19/22 09:18 36.4 54 18 113/59 (77) 97 Room Air 03/19/22 09:15 64 16 99/54 (69) 99 Room Air 03/19/22 09:12 74 18 113/64 (80) 97 Room Air 03/19/22 09:09 81 18 108/58 (75) 97 Room Air 03/19/22 09:06 96 18 110/55 (73) 97 Room Air 03/19/22 09:03 71 18 118/64 (82) 97 Room Air 03/19/22 09:00 76 18 113/65 (81) 97 Room Air 03/19/22 08:57 67 18 121/76 (91) 97 Room Air 03/19/22 08:54 70 18 117/76 (90) 97 Room Air 03/19/22 08:51 56 18 110/68 (82) 100 Room Air 03/19/22 08:47 64 18 133/82 (99) 100 Room Air 03/19/22 08:23 67 20 131/93 (106) 98 Room Air 03/19/22 08:00 65 16 138/64 (88) 99 Room Air 03/19/22 07:30 71 16 116/69 (85) 98 Room Air 03/19/22 07:02 36.2 68 16 122/74 (90) 99 Room Air I & O 03/20/22 07:00 Intake Total 3300 ml Balance 3300 ml HAM LOYOLA MD 03/20/22 2213: Vag Delivery Note Vag Delivery Note I performed this delivery assisted by OMS4 Lea Whitehead, agree with documentation. LEA WHITEHEAD Mar 20, 2022 06:47 HAM LOYOLA MD Mar 20, 2022 22:13
[2022-03-20] MEDS: IBUPROFEN 600 MG (MOTRIN) TAB PO PRN ×3 (08:30→20:02)
--- NOTE | 2022-03-20 10:26 | Anesthesia-Regional Post-Op ---
Regional Patient Condition Mental Status: Alert, Oriented x3 Circulation: Same as Pre-Op Headache: Absent Sensation: Full Recovery Motor Block: Absent Post Op Complications Complications None Follow Up Care/Instructions Patient Instructions None needed. Anesthesia/Patient Condition Patient is doing well, no complaints, stable vital signs, no apparent adverse anesthesia problems. No complications reported per nursing. MOISE GRIFFITHS CRNA Mar 20, 2022 10:26
[2022-03-20] MEDS: PRENATAL VITAMIN 1 EA TAB PO SCH (10:59)
[2022-03-20] MEDS: DOCUSATE SODIUM 100 MG (COLACE) CAP PO SCH ×2 (10:59→20:02)
[2022-03-20] MEDS ORDERED: CATHETER FLUSH 10 ML SYR IV SCH (14:00)
[2022-03-21 00:13] VITALS: BP 111/76
[2022-03-21] MEDS: IBUPROFEN 600 MG (MOTRIN) TAB PO PRN ×3 (02:27→14:35)
[2022-03-21 04:10] VITALS: BP 122/64
[2022-03-21] MEDS ORDERED: FERROUS SULF 325 MG (IRON) TAB PO SCH (07:00)
[2022-03-21 07:10] LABS: BASOPHILS % (AUTO) 0 % (0-10); EOSINOPHILS # (AUTO) 0.2 10^3/uL (0.0-0.3); EOSINOPHILS % (AUTO) 1 % (0-10); HEMATOCRIT 33 % (35-52); HEMOGLOBIN 10.3 g/dL (11.5-16.0); LYMPHOCYTES # (AUTO) 1.7 10^3/uL (1.0-4.0); LYMPHOCYTES % (AUTO) 13 % (12-44); MEAN CORPUSCULAR HEMOGLOBIN 25 pg (25-34); MEAN CORPUSCULAR HGB CONC 32 g/dL (32-36); MEAN CORPUSCULAR VOLUME 80 fL (80-99); MEAN PLATELET VOLUME 10.4 fL (9.0-12.2); MONOCYTES # (AUTO) 0.8 10^3/uL (0.0-1.0); MONOCYTES % (AUTO) 6 % (0-12); NEUTROPHILS # (AUTO) 10.5 10^3/uL (1.8-7.8); NEUTROPHILS % (AUTO) 79 % (42-75); PLATELET COUNT 163 10^3/uL (130-400); WHITE BLOOD COUNT 13.3 10^3/uL (4.3-11.0)
[2022-03-21] MEDS ORDERED: FERR325T24 PO (07:31)
[2022-03-21] MEDS ORDERED: IBUP-844 PO (07:31)
[2022-03-21] MEDS: PRENATAL VITAMIN 1 EA TAB PO SCH (09:26)
[2022-03-21] MEDS: DOCUSATE SODIUM 100 MG (COLACE) CAP PO SCH (09:26)
[2022-03-21 09:30] VITALS: BP 120/88
[2022-03-21 14:35] VITALS: BP 120/79
--- NOTE | 2022-03-21 15:20 | Discharge Summary ---
LEA WHITEHEAD 03/21/22 1511: Discharge Summary Hospital Course Problems Reviewed?: Yes Problems/Diagnosis: (1) Elective induction of labor planned (2) 40 weeks gestation of (3) GBS (group B Streptococcus carrier), +RV culture, currently Hospital Course Date of Admission: Mar 18, 2022 at 20:36 Admission Diagnosis : Family Physician/Provider: No,Local Physician Date of Discharge: 03/21/22 Discharge Diagnosis: [see problem list] Hospital Course: [This patient was admitted for induction of labor. Patient had uncomplicated delivery of a viable . Patient is stable and ready for discharge.] Labs and Pending Lab Test: Laboratory Tests 03/21/22 06:43: White Blood Count 13.3H, Red Blood Count 4.10, Hemoglobin 10.3L, Hematocrit 33L, Mean Corpuscular Volume 80, Mean Corpuscular Hemoglobin 25, Mean Corpuscular Hemoglobin Concent 32, Red Cell Distribution Width 14.1, Platelet Count 163, Mean Platelet Volume 10.4, Immature Granulocyte % (Auto) 1, Neutrophils (%) (Auto) 79H, Lymphocytes (%) (Auto) 13, Monocytes (%) (Auto) 6, Eosinophils (%) (Auto) 1, Basophils (%) (Auto) 0, Neutrophils # (Auto) 10.5H, Lymphocytes # (Auto) 1.7, Monocytes # (Auto) 0.8, Eosinophils # (Auto) 0.2, Basophils # (Auto) 0.0, Immature Granulocyte # (Auto) 0.1 Home Meds Active Ibu (Ibuprofen) 600 Mg Tablet 600 Mg PO Q6HR PRN Ferosul (Ferrous Sulfate) 325 Mg (65 Mg Iron) Tablet 325 Mg PO DAILY@0700 Reported Formula ( Vit W-Ca,Fe,FA(<1 mg)) 1 Each Tablet 1 Each PO Patient Discharge Instructions Patient is day 1 s/p spontaneous vaginal delivery. Patient is doing well. Please follow up in six weeks with your obstetrics provider for a postpar romario visit. Activity: Activity as Tolerated (avoid strenuous activity for 6 weeks) Driving Instructions: You May Drive Nothing Inside Vagina: No Douching, No [place], No Tampons Discharge Diet: No Restrictions Symptoms to Report to : Swelling Increased, Bleeding Excessive, Eyesight Changes, Pain Increased, Fever Over 101 Degrees F, Pain/Pressure in Chest, Urination Difficulty, Vaginal Bleeding Increase, Vaginal Discharge Foul, Questions/Concerns, Shortness of Breath For Any Problems or Questions: Contact Your Physician Discharge Physical Examination Allergies: Coded Allergies: Penicillins (Verified Allergy, Intermediate, Hives, 03/18/22) divalproex sodium (Verified Allergy, Mild, Rash, 03/18/22) Vitals & I&Os Vital Signs Date Time Temp Pulse Resp B/P (MAP) Pulse Ox O2 Delivery O2 Flow Rate FiO2 03/21/22 04:10 35.8 68 18 122/64 (83) 98 Room Air General Appearance: No Apparent Distress Respiratory: Chest Non Tender, Lungs Clear, Normal Breath Sounds, No Accessory Muscle Use, No Respiratory Distress Cardiovascular: Regular Rate, Rhythm, No Edema, No Gallop, No JVD, No Murmur, Normal Peripheral Pulses Gastrointestinal: Normal Bowel Sounds, No Organomegaly, No Pulsatile Mass, Non Tender, Soft Extremity: Normal Inspection, No Calf Tenderness, No Pedal Edema Skin: Normal Color, Warm/Dry Neurologic/Psychiatric: Alert, No Motor/Sensory Deficits, Normal Mood/Affect Discharge Summary Date of Admission Date of Discharge HAM LOYOLA MD 03/21/221920: Discharge Summary Discharge Physical Examination Allergies: Coded Allergies: Penicillins (Verified Allergy, Intermediate, Hives, 03/18/22) divalproex sodium (Verified Allergy, Mild, Rash, 03/18/22) Supervisory-Addendum Brief Supervisory Addendum Pt seen and examined by me along with OMS4 Lea Whitehead, I did my own history as well which confirms that documented by the medical student. I directed the plan of care as documented. LEA WHITEHEAD Mar 21, 2022 15:11 HAM LOYOLA MD Mar 21, 2022 19:21
== END 2022-03-21 19:30 | disposition home or self-care (01) | DRG 807 ==
LOC: LDRP 20:36
PROVIDERS: ADMIT Family Medicine; ATTEND Family Medicine
PROC: 10E0XZZ Delivery of Products of Conception, External Approach (ICD-10-PCS; principal; 2022-03-19)
PROC: 10907ZC Drainage of Amniotic Fluid, Therapeutic from Products of Conception, Via Natural or Artificial Opening (ICD-10-PCS; 2022-03-19)
PROC: 3E033VJ Introduction of Other Hormone into Peripheral Vein, Percutaneous Approach (ICD-10-PCS; 2022-03-19)
DX: O99.824 Streptococcus B carrier state complicating childbirth (principal); Z37.0 Single live birth; Z3A.40 40 weeks gestation of pregnancy; O70.0 First degree perineal laceration during delivery
CPT/HCPCS: 36415; 85025; 86780; 86850; 86900; 86901